=== PATIENT | female | born 1960 | race African-American/Black ===

== ENCOUNTER 2017-06-20 07:05 | Outpatient (CLI) | payer BC ==
--- NOTE | 2017-06-20 09:25 | ULT ---
RENAL ULTRASOUND: Comparison: 01-01-17; CT abdomen/pelvis 05-01-17 History: Kidney stones. Technique: Multiplanar grayscale and color doppler images were obtained in a renal ultrasound. FINDINGS: There appear to be nonobstructing shadowing calcifications within the right kidney. No stones are se en in the left kidney. There is no evidence of hydronephrosis. The kidneys measure 11.0 and 11.2 cm in length on the right and left respectively. Superior to the right kidney there appears to be a mass within the right adrenal gland. This corresp onds to the adrenal adenoma seen on prior CT. The urinary bladder is empty. IMPRESSION: 1. Right nonobstructing renal calcifications. 2. Right adrenal adenoma. POS: [facility]
== END 2017-06-20 07:06 | disposition home or self-care (01) ==
LOC: ULT 07:05
PROVIDERS: ATTEND Urology
DX: N20.0 Calculus of kidney (principal); D35.01 Benign neoplasm of right adrenal gland
CPT/HCPCS: 76770

== ENCOUNTER 2017-10-23 09:06 | Outpatient (CLI) | payer OTHER | END 2017-10-23 09:07 | disposition home or self-care (01) | LOC: BICMAMMO 09:06 | PROVIDERS: ATTEND Internal Medicine Hematology & Oncology | DX: C50.919 Malignant neoplasm of unspecified site of unspecified female breast (principal); Z80.3 Family history of malignant neoplasm of breast; Z85.3 Personal history of malignant neoplasm of breast | CPT/HCPCS: 77066; G0279 ==

== ENCOUNTER 2017-12-14 09:51 | Day surgery (SDC) | payer OTHER ==
[2017-12-13 11:08] VITALS: BMI 51.3
[2017-12-14] MEDS ORDERED: CEFAZOLIN/Water 2 GM/20 ML SYRINGE ONE (10:33)
[2017-12-14] MEDS ORDERED: Heparin 5,000 UNITS/ML VIAL ONE (10:33)
[2017-12-14 11:11] LABS: Anion Gap 12 mmol/L (10-20); BUN (Urea Nitrogen) 12 mg/dL (9.8-20.1); Calc. Creatinine Clearance 167 mL/min (70-130); Calcium 9.9 mg/dL (7.8-10.44); Carbon Dioxide 30 mmol/L (22-29); Chloride 100 mmol/L (98-107); Estimated GFR-MDRD Greater than 90; Glucose 143 mg/dL (70-105); Potassium 3.2 mmol/L (3.5-5.1); Sodium 139 mmol/L (136-145)
[2017-12-14] MEDS ORDERED: Fentanyl 250 MCG/5 ML VIAL ONE (11:21)
[2017-12-14] MEDS ORDERED: Bupivacaine/Epinephrine 0.25% 30 ML VIAL ONE (11:23)
[2017-12-14] MEDS ORDERED: Gentamicin 80 MG/2 ML VIAL ONE (11:23)
[2017-12-14] MEDS ORDERED: Sodium Chloride 0.9% 20 ML ONE (11:24)
[2017-12-14] MEDS ORDERED: Midazolam HCl 2 mg/2 ml Vial ONE (12:05)
[2017-12-14] MEDS ORDERED: Ondansetron HCl/PF 4 MG/2 ML Vial ONE (12:11)
[2017-12-14] MEDS ORDERED: Fentanyl 100 MCG/2 ML VIAL ONE (15:06)
--- NOTE | 2017-12-14 16:19 | OP ---
PREOPERATIVE DIAGNOSES: 1. History of right breast cancer. 2. Status post right lumpectomy with radiation. 3. Asymmetry of breast. 4. Left macromastia. POSTOPERATIVE DIAGNOSES: 1. History of right breast cancer. 2. Status post right lumpectomy with radiation. 3. Asymmetry of breast. 4. Left macromastia. PROCEDURES PERFORMED: Left breast reduction for asymmetry following breast cancer (.LT). PROCEDURE IN DETAIL: Following induction of adequate anesthesia, the patient was prepped and draped in the usual sterile fashion in the supine position. The patient has been preoperatively marked for a modified Vieira pattern breast reduction. The skin over the modified Vieira pattern was de-epitheliali zed. Glandular units were then resected out medially and laterally to achieve the approximate symmet ry of the other breast. Care was taken to leave a very large central pedicle. No flap undermining w as required. The field was copiously irrigated and inspected for meticulous hemostasis prior to clos ing down the excision defects or quilting the excision defects with 2-0 PDS suture. Skin closure was achieved with 3-0 PDS suture and 3-0 Monocryl suture. The nipple which had been previously circumci sed around a 50 mm, nipple sizer was brought out through a similar size defect and inset with 3-0 Mon ocryl suture. The patient tolerated procedure well.
[2017-12-14] MEDS ORDERED: HYDROcodone/Acetaminophen 5/325 mg Tablet ONE (16:30)
== END 2017-12-14 17:50 | disposition home or self-care (01) ==
LOC: SDC 09:51
PROVIDERS: ATTEND Plastic Surgery
PROC: 0H0U0ZZ Alteration of Left Breast, Open Approach (ICD-10-PCS; principal; 2017-12-14)
DX: N62 Hypertrophy of breast (principal); E66.9 Obesity, unspecified; Z68.43 Body mass index [BMI] 50.0-59.9, adult; Z98.890 Other specified postprocedural states; Z85.3 Personal history of malignant neoplasm of breast
CPT/HCPCS: 80048; 93005; 93010; 96374; A4216; J1580; J1644; J2250; J2405; J3010; J3370; J3490

== ENCOUNTER 2017-12-16 15:19 | Emergency (ER) | payer OTHER | END 2017-12-16 17:09 | disposition home or self-care (01) | LOC: ERS 15:19 | DX: I10 Essential (primary) hypertension; Z79.899 Other long term (current) drug therapy; E03.9 Hypothyroidism, unspecified; F41.9 Anxiety disorder, unspecified; R04.0 Epistaxis | CPT/HCPCS: 99283 ==

== ENCOUNTER 2018-03-25 11:18 | Outpatient (CLI) | payer OTHER ==
[2018-03-25] MEDS ORDERED: ISOVUE-370 76%-LOCM 1 ML ONE (12:55)
== END 2018-03-25 11:19 | disposition home or self-care (01) ==
LOC: BICCT 11:18
PROVIDERS: ATTEND Family Medicine
DX: E31.21 Multiple endocrine neoplasia [MEN] type I (principal); R10.10 Upper abdominal pain, unspecified; E27.9 Disorder of adrenal gland, unspecified; N20.0 Calculus of kidney; K45.8 Other specified abdominal hernia without obstruction or gangrene; K44.9 Diaphragmatic hernia without obstruction or gangrene
CPT/HCPCS: 74177

== ENCOUNTER 2018-04-09 16:16 | Outpatient (CLI) | payer OTHER ==
[2018-04-09 17:02] LABS: #Eosinphils 0.3 thou/uL (0.0-0.7); #Lymphocytes 2.3 thou/uL (1.20-3.40); #Monocytes 0.7 thou/uL (0.11-0.59); %Basophils 0.3 % (0.0-1.0); %Eosinophils 4.3 % (0.0-10.0); %Lymphocytes 31.4 % (21.0-51.0); %Monocytes 9.2 % (0.0-10.0); %Neutrophils 54.7 % (42.0-75.0); Hemoglobin 12.1 g/dL (12.0-16.0); Mean Corpuscular HGB CONC 32.1 g/dL (32.0-36.0); Mean Corpuscular Hemoglobin 22.1 pg (27.0-31.0); Mean Corpuscular Volume 68.9 fL (78.0-98.0); Mean Platelet Volume 10.6 fL (7.4-10.4); Platelet Count 292 thou/uL (130-400); Red Blood Cell (RBC) Count 5.48 mill/uL (4.20-5.40); White Blood Cell (WBC) Count 7.2 thou/uL (4.8-10.8)
[2018-04-09 17:22] LABS: Anisocytosis SLIGHT = 6-15 cells (100X) (0-5/hpf); Hypochromia SLIGHT = 6-15 cells (100X) (0-5/hpf); Large Platelets SLIGHT; MDiff Complete? YES; Microcytosis SLIGHT = 6-15 cells (100X) (0-5/hpf); Ovalocytes SLIGHT = 2-5 cells (100X) (0-1/hpf); PLT Morphology Comment Appears Adequate; Polychromasia SLIGHT = 2-3 cells (100X) (0-2/hpf)
[2018-04-09 17:23] LABS: Anion Gap 14 mmol/L (10-20); BUN (Urea Nitrogen) 13 mg/dL (9.8-20.1); Calc. Creatinine Clearance 0 mL/min (70-130); Calcium 10.2 mg/dL (7.8-10.44); Carbon Dioxide 30 mmol/L (22-29); Chloride 97 mmol/L (98-107); Estimated GFR-MDRD Greater than 90; Glucose 94 mg/dL (70-105); Potassium 3.3 mmol/L (3.5-5.1); Sodium 138 mmol/L (136-145)
== END 2018-04-09 16:17 | disposition home or self-care (01) ==
LOC: LABBT 16:16
PROVIDERS: ATTEND Surgery
DX: Z01.812 Encounter for preprocedural laboratory examination (principal); K40.90 Unilateral inguinal hernia, without obstruction or gangrene, not specified as recurrent
CPT/HCPCS: 80048; 85025

== ENCOUNTER 2018-04-18 05:46 | Day surgery (SDC) | payer OTHER ==
[2018-04-09 16:28] VITALS: BMI 49.6
[2018-04-18] MEDS ORDERED: CEFAZOLIN/Water 2 GM/20 ML SYRINGE ONE (06:30)
[2018-04-18] MEDS ORDERED: Bupivacaine/Epinephrine 0.25% 30 ML VIAL ONE (06:40)
[2018-04-18] MEDS ORDERED: Fentanyl 100 MCG/2 ML VIAL ONE ×5 (06:40→10:30)
[2018-04-18] MEDS ORDERED: Scopolamine 1.5 mg/72 hour Patch ONE (07:04)
[2018-04-18] MEDS ORDERED: Midazolam HCl 2 mg/2 ml Vial ONE (07:04)
[2018-04-18] MEDS ORDERED: SUGAMMADEX SODIUM 200 MG/2 ML VIAL ONE (09:10)
--- NOTE | 2018-04-18 10:23 | OP ---
DATE OF PROCEDURE: 04/18/2018. PREOPERATIVE DIAGNOSIS: Incisional hernia. POSTOPERATIVE DIAGNOSIS: Incisional hernia. PROCEDURE: Laparoscopic da Cande robot incisional hernia repair with mesh. SURGEON: John Magallon M.D. ANESTHESIA: General. ESTIMATED BLOOD LOSS: 20 mL. COMPLICATIONS: None. SPECIMEN: None. TECHNIQUE: The patient was taken to the operating room, placed supine on the table. After general a nesthetic was obtained, a Sharpe was placed. The abdomen is prepped and draped in a sterile fashion. Left subcostal 5-mm Optiview trocar was placed in the usual fashion. High-flow pneumoperitoneum was obtained. Right and left upper abdominal 8 mm robot trocars were placed. All ports were docked to the robot. Surgeon goes to the console. Adhesions are taken down using robot scissors very carefull y without injury. The hernia above the umbilicus is expose. The peritoneum is taken down circumfere ntially. Adhesions are taken down in order to facilitate mesh placement. A #1 V-Loc as well as a 2- 0 V-Loc and an [address] mesh was brought into the sterile field and placed in through the camera port. The camera port had been switched out to an 11 mm balloon applied medical trocar. The fascial defects closed using the #1 V-Loss of consciousness. The needle for the suture is then u sed to hold the mesh up and center it over the defect. It has now been closed. The 2-0 V-Loc used t o sew the mesh circumferentially to the posterior fascia all the way around and then it is overlapped . The mesh completely covers the defect. All port sites were infiltrated using local anesthetic. A ll ports are removed under camera visualization and pneumoperitoneum was let down. 4-0 Monocryl and Dermabond used to close all skin incisions. Patient is en route to recovery in stable condition. Al l sponge counts, needle counts, lap counts were correct.
[2018-04-18] MEDS ORDERED: HYDROcodone/Acetaminophen 5/325 mg Tablet ONE (12:48)
[2018-04-18] MEDS ORDERED: Lidocaine 1% PF 5 ML VIAL ONE (14:50)
[2018-04-18] MEDS ORDERED: Glycopyrrolate 0.2 MG/ML 5 ML SYRINGE ONE (14:50)
[2018-04-18] MEDS ORDERED: PROPOFOL 200 MG/20 ML VIAL ONE (14:50)
[2018-04-18] MEDS ORDERED: Ondansetron HCl/PF 4 MG/2 ML Vial ONE (14:50)
== END 2018-04-18 13:05 | disposition home or self-care (01) ==
LOC: SDC 05:46
PROVIDERS: ATTEND Surgery
PROC: 0WUF4JZ Supplement Abdominal Wall with Synthetic Substitute, Percutaneous Endoscopic Approach (ICD-10-PCS; principal; 2018-04-18)
PROC: 8E0W4CZ Robotic Assisted Procedure of Trunk Region, Percutaneous Endoscopic Approach (ICD-10-PCS; principal; 2018-04-18)
DX: K43.2 Incisional hernia without obstruction or gangrene (principal); F32.9 Major depressive disorder, single episode, unspecified; D64.9 Anemia, unspecified; K21.9 Gastro-esophageal reflux disease without esophagitis; Z79.899 Other long term (current) drug therapy; Z98.890 Other specified postprocedural states
CPT/HCPCS: 96374; 96376; C1781; J2001; J2250; J2405; J2704; J3010

== ENCOUNTER 2018-05-25 20:53 | Emergency (ER) | payer OTHER ==
--- NOTE | 2018-05-25 22:28 | ULT ---
RIGHT LOWER EXTREMITY VENOUS DOPPLER: 05/25/18 HISTORY: Lower extremity pain and swelling. COMPARISON: Lower extremity doppler from 2013. TECHNIQUE: Real time fernández scale color doppler and spectral analysis of the right lower extremity venous system w as performed. Common femoral, femoral, proximal portions of the greater saphenous and deep femoral ve in as well as popliteal and posterior tibial veins are interrogated. Normal flow, augmentation and compression. No deep venous thrombosis. There is superficial thrombophl ebitis with soft tissue inflammation at the area of pain. IMPRESSION: 1. No deep venous thrombosis. 2. Superficial thrombophlebitis. POS: [facility]
== END 2018-05-25 22:52 | disposition home or self-care (01) ==
LOC: ERS 20:53
DX: I80.01 Phlebitis and thrombophlebitis of superficial vessels of right lower extremity (principal); F41.9 Anxiety disorder, unspecified; I10 Essential (primary) hypertension; Z79.899 Other long term (current) drug therapy

== ENCOUNTER 2018-10-24 13:18 | Outpatient (CLI) | payer OTHER | END 2018-10-24 13:19 | disposition home or self-care (01) | LOC: BICMAMMO 13:18 | PROVIDERS: ATTEND Internal Medicine Hematology & Oncology | DX: Z08 Encounter for follow-up examination after completed treatment for malignant neoplasm (principal); R92.1 Mammographic calcification found on diagnostic imaging of breast; Z85.3 Personal history of malignant neoplasm of breast; Z80.3 Family history of malignant neoplasm of breast | CPT/HCPCS: 77066; G0279 ==

== ENCOUNTER 2019-05-21 05:23 | Emergency (ER) | payer OTHER ==
[2019-05-21] MEDS ORDERED: Aspirin Chewable 81 MG TAB ONE (05:43)
[2019-05-21 06:33] LABS: #Eosinphils 0.2 thou/uL (0.0-0.7); #Lymphocytes 2.3 thou/uL (1.20-3.40); #Monocytes 0.8 thou/uL (0.11-0.59); #Neutrophils 5.1 thou/uL (1.40-6.50); %Basophils 0.4 % (0.0-1.0); %Eosinophils 2.9 % (0.0-10.0); %Lymphocytes 27.4 % (21.0-51.0); %Monocytes 9.1 % (0.0-10.0); %Neutrophils 60.2 % (42.0-75.0); Hemoglobin 11.8 g/dL (12.0-16.0); Mean Corpuscular HGB CONC 30.9 g/dL (32.0-36.0); Mean Corpuscular Hemoglobin 21.3 pg (27.0-31.0); Mean Platelet Volume 10.5 fL (7.4-10.4); Platelet Count 301 thou/uL (130-400); RBC Distribution Width 16.3 % (11.5-14.5); Red Blood Cell (RBC) Count 5.51 mill/uL (4.20-5.40); White Blood Cell (WBC) Count 8.4 thou/uL (4.8-10.8)
[2019-05-21 06:47] LABS: ALT (SGPT) 12 U/L (8-55); AST (SGOT) 13 U/L (5-34); Albumin 3.6 g/dL (3.5-5.0); Alkaline Phosphatase 135 U/L (40-150); Anion Gap 12 mmol/L (10-20); BUN (Urea Nitrogen) 12 mg/dL (9.8-20.1); Bilirubin, Total 0.3 mg/dL (0.2-1.2); Calc. Creatinine Clearance 0 mL/min (70-130); Calcium 9.7 mg/dL (7.8-10.44); Carbon Dioxide 27 mmol/L (22-29); Chloride 103 mmol/L (98-107); Estimated GFR-MDRD 89; Globulin 3.5 g/dL (2.4-3.5); Glucose 164 mg/dL (70-105); Potassium 3.5 mmol/L (3.5-5.1); Protein, Total 7.1 g/dL (6.0-8.3); Sodium 138 mmol/L (136-145)
[2019-05-21] MEDS ORDERED: Mag-Al 1200 mg/1200 mg/30 ML UDCUP ONE (07:10)
[2019-05-21] MEDS ORDERED: Lidocaine Viscous Sol 2% 15 ml UD Cup ONE (07:10)
--- NOTE | 2019-05-21 09:01 | RAD ---
CHEST 1 VIEW PORTABLE: Date: 05/21/19 HISTORY: Chest pain for 1 week, primarily left-sided chest. COMPARISON: 12/02/15. FINDINGS: Monitor leads overlie the chest. Minimal rotation to the left. No significant cardiomegaly, edema, pn eumonia, or pleural effusion. IMPRESSION: Minimal rotation. Possible mild vascular congestion. No other acute process. POS: [facility]
--- NOTE | 2019-05-24 12:31 | EKG ---
Test Reason : Blood Pressure : / mmHG Vent. Rate : 078 BPM Atrial Rate : 078 BPM P-R Int : 162 ms QRS Dur : 090 ms QT Int : 386 ms P-R-T Axes : 035 -17 012 degrees QTc Int : 440 ms Normal sinus rhythm with sinus arrhythmia Voltage criteria for left ventricular hypertrophy Abnormal ECG Confirmed by ANGELITO CAMPBELL M.D. ([id number]), society editor YANCY MAYS ([id number]) on 05/24/2019 12:31:31 PM Referred By: Confirmed By:ANGELITO CAMPBELL M.D.
== END 2019-05-21 09:15 | disposition home or self-care (01) ==
LOC: ERS 05:23
DX: R07.2 Precordial pain (principal); E03.9 Hypothyroidism, unspecified; I10 Essential (primary) hypertension; F41.9 Anxiety disorder, unspecified; Z79.899 Other long term (current) drug therapy
CPT/HCPCS: 36415; 71045; 80053; 84484; 85025; 93005

== ENCOUNTER 2019-06-27 08:27 | Emergency (ER) | payer OTHER ==
[2019-06-27 09:34] LABS: #Basophils 0.1 thou/uL (0.0-0.2); #Eosinphils 0.2 thou/uL (0.0-0.7); #Lymphocytes 2.3 thou/uL (1.20-3.40); #Monocytes 0.6 thou/uL (0.11-0.59); #Neutrophils 4.4 thou/uL (1.40-6.50); %Basophils 0.7 % (0.0-1.0); %Eosinophils 2.4 % (0.0-10.0); %Lymphocytes 30.4 % (21.0-51.0); %Neutrophils 58.5 % (42.0-75.0); Hemoglobin 12.5 g/dL (12.0-16.0); Mean Corpuscular HGB CONC 30.9 g/dL (32.0-36.0); Mean Corpuscular Hemoglobin 21.6 pg (27.0-31.0); Mean Corpuscular Volume 69.9 fL (78.0-98.0); Platelet Count 279 thou/uL (130-400); RBC Distribution Width 16.1 % (11.5-14.5); Red Blood Cell (RBC) Count 5.77 mill/uL (4.20-5.40); White Blood Cell (WBC) Count 7.5 thou/uL (4.8-10.8)
[2019-06-27 09:52] LABS: ALT (SGPT) 15 U/L (8-55); AST (SGOT) 14 U/L (5-34); Albumin 3.8 g/dL (3.5-5.0); Alkaline Phosphatase 117 U/L (40-110); Anion Gap 12 mmol/L (10-20); BUN (Urea Nitrogen) 13 mg/dL (9.8-20.1); Bilirubin, Total 0.6 mg/dL (0.2-1.2); Calc. Creatinine Clearance 0 mL/min (70-130); Carbon Dioxide 31 mmol/L (22-29); Chloride 99 mmol/L (98-107); Estimated GFR-MDRD 86; Globulin 3.8 g/dL (2.4-3.5); Glucose 159 mg/dL (70-105); Lipase 234 U/L (8-78); Potassium 3.7 mmol/L (3.5-5.1); Protein, Total 7.6 g/dL (6.0-8.3); Sodium 138 mmol/L (136-145)
[2019-06-27 09:53] LABS: Hypochromia MODERATE=16-30 cells (100X) (0-5/hpf); MDiff Complete? YES; Microcytosis MODERATE=15-30 cells (100X) (0-5/hpf); Platelet Morphology Comment Appears Adequate; Polychromasia SLIGHT = 2-3 cells (100X) (0-2/hpf); Reflex for Review?? YES
[2019-06-27] MEDS ORDERED: Morphine 4 MG/ML VIAL ONE ×2 (09:54→11:41)
[2019-06-27] MEDS ORDERED: Ondansetron PF 4 MG/2 ML Vial ONE (09:54)
--- NOTE | 2019-06-27 11:38 | CT ---
CT ABDOMEN AND PELVIS WITH IV CONTRAST: Date: 06/27/19 HISTORY: Epigastric pain radiating to the back. Right breast cancer. FINDINGS: Comparison made with exam of 03/25/18. Chronic changes in the lung bases are again seen. A large hiatal hernia is again noted. The patient i s post cholecystectomy and hysterectomy. The liver, spleen, and pancreas are normal. Bilateral adrena l adenomas noted on 05/01/17 are stable. No free air, free fluid, or lymphadenopathy seen in the abdomen or pelvis. The small bowel loops are not abnormally dilated. Fat-containing ventral abdominal hernia again seen with continued induration of the herniated fat which was also seen on the previous study. There are vascular calcifications without evidence of aneurysmal dilatation of the abdominal aorta. T here are degenerative changes in the spine. IMPRESSION: Stable exam. No acute process. POS: [facility]
[2019-06-27] MEDS ORDERED: Ketorolac Tromethamine 30 MG/ML VIAL ONE (11:41)
[2019-06-27] MEDS ORDERED: Acetaminophen 500 MG TAB ONE (11:41)
--- NOTE | 2019-06-28 14:07 | EKG ---
Test Reason : EPIGASTRIC PAIN Blood Pressure : / mmHG Vent. Rate : 067 BPM Atrial Rate : 067 BPM P-R Int : 160 ms QRS Dur : 096 ms QT Int : 398 ms P-R-T Axes : 102 -16 020 degrees QTc Int : 420 ms Sinus rhythm with Premature atrial complexes with Abberant conduction Moderate voltage criteria for LVH, may be normal variant Borderline ECG Confirmed by RADHA NGUYEN ([id number]), editorial specialist YANCY MAYS ([id number]) on 06/28/2019 2:06:52 PM Referred By: WENDY Confirmed By:RADHA NGUYEN
== END 2019-06-27 12:56 | disposition home or self-care (01) ==
LOC: ERS 08:27
DX: K44.9 Diaphragmatic hernia without obstruction or gangrene (principal); E03.9 Hypothyroidism, unspecified; I10 Essential (primary) hypertension; F41.9 Anxiety disorder, unspecified; Z79.899 Other long term (current) drug therapy; Z87.442 Personal history of urinary calculi
CPT/HCPCS: 36415; 74177; 80053; 83690; 84484; 85025; 85060; 93005; 96361; 96374; 96375; 96376; J1885; J2270; J2405

== ENCOUNTER 2019-07-16 05:53 | Day surgery (SDC) | payer OTHER ==
[2019-07-16] MEDS ORDERED: Lidocaine 1% PF 5 ML VIAL ONE (10:21)
[2019-07-16] MEDS ORDERED: PROPOFOL 200 MG/20 ML VIAL ONE (10:21)
[2019-07-16] MEDS ORDERED: Morphine 2 MG/ML SYRINGE ONE (10:59)
--- NOTE | 2019-07-16 11:04 | OP ---
DATE OF PROCEDURE: 07/16/2019 PROCEDURE PERFORMED: Esophagogastroduodenoscopy. PREMEDICATION: Given by Anesthesiology Department. PREPROCEDURE DIAGNOSES: 1. Epigastric pain/xiphoid pain. 2. Gastroesophageal reflux disease. POSTPROCEDURE DIAGNOSES: 1. 6-cm length hiatal hernia. 2. Otherwise normal upper endoscopy. DESCRIPTION OF PROCEDURE: Written consents were obtained prior to procedure. After adequate sedation, the forward-viewing endoscope was advanced down the stomach under direct vision to the second portion of duodenum. The duodenum and the bulb appeared normal. The pylorus was patent. The gastric antrum, body, fundus, and cardia all appeared normal. Retroflexion showed a medium-sized hiatal hernia. The hiatal hernia ways were located at 40 cm. The GE junction and Z-line were located at 34 cm from the incisors. The lower, mid, and upper esophagus appeared normal. The patient tolerated the procedure well. ASSESSMENT: 1. 6-cm length hiatal hernia. 2. Otherwise normal esophagus/stomach/duodenum. 3. Suspected chest wall source of pain given negative CT otherwise. RECOMMENDATIONS: Soft tissue ultrasound over the xiphoid area. Job ID: [id number]
== END 2019-07-16 11:58 | disposition home or self-care (01) ==
LOC: SDC 05:53
PROVIDERS: ATTEND Internal Medicine Gastroenterology
PROC: 0DJ08ZZ Inspection of Upper Intestinal Tract, Via Natural or Artificial Opening Endoscopic (ICD-10-PCS; principal; 2019-07-16)
DX: R07.89 Other chest pain (principal); K44.9 Diaphragmatic hernia without obstruction or gangrene; K21.9 Gastro-esophageal reflux disease without esophagitis; F41.9 Anxiety disorder, unspecified; Z79.899 Other long term (current) drug therapy
CPT/HCPCS: J2001; J2270; J2704

== ENCOUNTER 2019-07-17 08:18 | Outpatient (CLI) | payer OTHER ==
--- NOTE | 2019-07-17 09:55 | ULT ---
SOFT TISSUE ULTRASOUND: HISTORY: Sternal subcutaneous knot. TECHNIQUE: Targeted sonographic imaging of the region of concern was performed. FINDINGS: There is soft tissue echotexture. There does appear to be a lobular area of normal-appearing soft tis juan miguel echotexture measuring 2.6 x 1.4 x 2.1 cm. There does not appear to be a corresponding mass on recent CT. There is some stranding the ventral subcutaneous fat, however this is inferior to the umbi licus. IMPRESSION: Essentially normal soft tissue echotexture in the region of concern. A more focal lobulated area of s imilar echotexture is noted. Consider general surgical consultation for possible evaluation and/or biopsy. Transcribed Date/Time: 07/17/2019 10:04 AM
--- NOTE | 2019-07-17 16:01 | MRI ---
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 "Comments: Carcinoid tumors. Meningioma." COMPARISON: Standard brain MRI of 02/02/2017. FINDINGS: There is a small, approximately 0.4 x 0.3 cm extra-axial mass exophytically protruding superiorly fro m the superior edge of the right cavernous carotid/supraclinoid carotid junction, into the lateral edge of the suprasellar cistern, in close proximity to the undersurface of the right side of the opti c chiasm but not contacting it. It has intermediate signal intensity on precontrast images, and it enhances (thin slice dynamic coronal images 8 of 10, series 13; and 8 of 10, series 14). Precontrast later washes out and it becomes difficult to visualize. It is uncertain whether or not it was present on previous MRI of 2017. Again noted are the 2 focal prominent ossified dural plaques. One is at midline at the interhemispher ic falx, and the other is at the right frontal upper paramedian epidural space. These have fatty marrow signal, and are not meningiomas. Again noted is the evidence of left frontotemporal craniotomy, deep to which there is a small to mode rate-sized left lateral upper frontal focal extra-axial fluid collection measuring approximately 1.5 x 1.5 x 2 cm, which could be a porencephalic cyst, deep to which there is a small patchy region o f gliosis and encephalomalacia, representing site of previously resected meningioma. There is no other major intra-axial signal abnormality. Ventricles are normal in size and configurati on. No mass effect or midline shift. No recent intra-axial hemorrhage. No restricted diffusion. There is no pituitary macroadenoma. The thin slices through the sella turcica are degraded by patient motion such that it is difficult to evaluate for pituitary microadenoma. There is a small subcentimeter focus hypointense signal on T2-weighted images and T1-weighted images in the right side of sella turcica on precontrast sequences, there are questionable for pituitary microadenoma. No evidence of new intra-axial neoplasm. IMPRESSION: 1.) Tiny enhancing extra-axial nodule just superior to the right carotid siphon, questionable for tin y neoplasm such as tiny meningioma. 2.) Questionable small right-sided pituitary microadenoma versus artifact (the sella turcica images a re degraded by patient motion). 3) status post left pterional craniotomy for resection of prior left supratentorial meningioma. No ev idence of tumor recurrence in that location.
--- NOTE | 2019-07-17 20:26 | MRI ---
EXAM: MRI of the chest without and with contrast COMPARISON: CT abdomen/pelvis 06/27/2019 HISTORY: Multiple endocrine neoplasia type I TECHNIQUE: Multiplanar multi sequence MR images were taken of the chest without and with IV contrast. FINDINGS: No obvious mass is seen within the lung parenchyma but evaluation is limited with MRI. No mass is see n of the chest wall. The heart is normal in size. There is a large hiatal hernia. No enlarged hilar or mediastinal lymph n odes are appreciated on this limited exam. No marrow signal abnormality is present. No obvious abnormal signal is seen in the visualized cord. No mass is seen posterior to the thyroid gland. There is a 3.5 similar right adrenal mass. There may be mild hyperplasia of the left adrenal gland. IMPRESSION: 1. No significant intrathoracic abnormality. Evaluation is limited secondary to respiratory motion ar tifact on MRI. 2. No obvious mass behind the thyroid gland. Evaluation for parathyroid adenomas would be better perf ormed with either a CT or nuclear medicine study. 3. Stable adrenal masses. 4. Large hiatal hernia
== END 2019-07-17 08:19 | disposition home or self-care (01) ==
LOC: SCSULT 08:18
PROVIDERS: ATTEND Internal Medicine Gastroenterology
DX: E31.21 Multiple endocrine neoplasia [MEN] type I (principal); D49.7 Neoplasm of unspecified behavior of endocrine glands and other parts of nervous system; R10.13 Epigastric pain; R11.2 Nausea with vomiting, unspecified; K21.9 Gastro-esophageal reflux disease without esophagitis; E27.8 Other specified disorders of adrenal gland; K44.9 Diaphragmatic hernia without obstruction or gangrene; G93.89 Other specified disorders of brain; Z98.890 Other specified postprocedural states
CPT/HCPCS: 70553; 71552; 76705

== ENCOUNTER 2019-08-04 02:07 | Observation (INO) | payer OTHER ==
[2019-08-04 03:28] LABS: #Eosinphils 0.3 thou/uL (0.0-0.7); #Lymphocytes 1.5 thou/uL (1.20-3.40); #Monocytes 0.7 thou/uL (0.11-0.59); #Neutrophils 4.4 thou/uL (1.40-6.50); %Basophils 0.3 % (0.0-1.0); %Eosinophils 3.6 % (0.0-10.0); %Lymphocytes 22.1 % (21.0-51.0); %Monocytes 9.9 % (0.0-10.0); %Neutrophils 64.1 % (42.0-75.0); Hemoglobin 11.8 g/dL (12.0-16.0); Mean Corpuscular HGB CONC 30.7 g/dL (32.0-36.0); Mean Corpuscular Hemoglobin 21.4 pg (27.0-31.0); Mean Corpuscular Volume 69.8 fL (78.0-98.0); Mean Platelet Volume 10.5 fL (7.4-10.4); Platelet Count 276 thou/uL (130-400); RBC Distribution Width 15.4 % (11.5-14.5); White Blood Cell (WBC) Count 6.9 thou/uL (4.8-10.8)
[2019-08-04 03:55] LABS: ALT (SGPT) 18 U/L (8-55); AST (SGOT) 21 U/L (5-34); Albumin 3.7 g/dL (3.5-5.0); Alkaline Phosphatase 139 U/L (40-110); Anion Gap 9 mmol/L (10-20); BUN (Urea Nitrogen) 14 mg/dL (9.8-20.1); Bilirubin, Total 0.5 mg/dL (0.2-1.2); CK (CPK) 83 U/L (29-168); Calc. Creatinine Clearance 0 mL/min (70-130); Calcium 9.5 mg/dL (7.8-10.44); Carbon Dioxide 31 mmol/L (22-29); Chloride 103 mmol/L (98-107); Estimated GFR-MDRD Greater than 90; Globulin 3.5 g/dL (2.4-3.5); Glucose 126 mg/dL (70-105); Lipase 21 U/L (8-78); Potassium 3.3 mmol/L (3.5-5.1); Protein, Total 7.2 g/dL (6.0-8.3); Sodium 140 mmol/L (136-145)
[2019-08-04] MEDS ORDERED: Ondansetron PF 4 MG/2 ML Vial ONE (05:51)
[2019-08-04] MEDS ORDERED: Morphine 4 MG/ML VIAL ONE (05:51)
[2019-08-04 06:33] LABS: Bilirubin Negative (Negative); Blood, Urine Negative (Negative); Clarity Clear (Clear); Glucose, Urine (Dipstick) Normal (Negative); Leukocyte Negative Leu/uL (Negative); Nitrite Negative (Negative); Protein, Urine (Dipstick) Negative (Neg-Trace)
[2019-08-04] MEDS ORDERED: Aspirin Chewable 81 MG TAB ONE (07:40)
--- NOTE | 2019-08-04 08:05 | CT ---
CT AORTIC DISSECTION PROTOCOL UTILIZING IV CONTRAST AND 3D REFORMATTED IMAGING: Date: 08/04/19 INDICATION: 59-year-old female with epigastric abdominal pain, nausea and vomiting. COMPARISON: CT abdomen and pelvis dated 06/27/[address] abdomen/pelvis dated 05/01/17. FINDINGS: No acute aortic stenosis, occlusion, or aneurysmal formation is demonstrated. There is mild vascular calcification of the abdominal aorta. Celiac, SMA, and renal arteries appear patent. Both common gwen c bifurcations appear patent. There are nonspecific areas of subsegmental volume loss involving both lungs. There is again seen a moderate to large hiatal hernia. No enlarged lymph nodes are evident ynes earing. There is stable postsurgical change of a prior cholecystectomy. Reticulation of the upper anterior mi dline omentum is relatively stable from June and likely related to an area of fat necrosis from vincenzo sanchez's history of abdominal procedures. Bilateral adrenal adenomas are stable appearing. There is st able left nephrolithiasis and areas of cortical calcification involving the right and left kidney. Vi sualized spleen and pancreas are within normal limits. The visualized unopacified bowel appear within normal limits. No acute osseous abnormality is evident. IMPRESSION: 1. No acute aortic stenosis, occlusion, or aneurysmal formation. 2. Chronic findings as above. POS: [facility]
[2019-08-04 09:00] LABS: Troponin I 0.018 ng/mL (< 0.028)
[2019-08-04] MEDS ORDERED: Morphine 2 MG/ML SYRINGE SLOW IVP PRN (09:16)
--- NOTE | 2019-08-04 09:16 | RAD ---
RADIOGRAPH CHEST 1 VIEW: DATE: 08/04/19 HISTORY: 59-year-old female with chest pain. FINDINGS: There are no air space densities, pulmonary edema, pneumothorax, or cardiomegaly. The lateral costop hrenic angles are sharp. There is a retrocardiac mass containing air fluid level at midline. IMPRESSION: 1. No acute cardiopulmonary findings. 2. Moderate size hiatal hernia. jn [] POS: [facility]
[2019-08-04 10:03] VITALS: BMI 50.0
[2019-08-04] MEDS ORDERED: Nitroglycerin 0.4 MG TAB (25 Tab Bottle) PO PRN (10:51)
[2019-08-04] MEDS ORDERED: Iopamidol-370 76% 500 ML 1 ML ONE (11:18)
[2019-08-04 11:38] LABS: Troponin I Less than 0.010 ng/mL (< 0.028)
[2019-08-04] MEDS ORDERED: Lorazepam 2 MG/ML VIAL SLOW IVP SCH (12:00)
[2019-08-04] MEDS ORDERED: FLU VACC QS2019-20(6MOS UP)/PF 60 MCG/0.5 ML SYRINGE IM ONE (12:30)
[2019-08-04] MEDS ORDERED: Ondansetron PF 4 MG/2 ML Vial IVP PRN (12:43)
[2019-08-04] MEDS ORDERED: Senokot S 8.6-50 MG TAB PO PRN (12:43)
[2019-08-04] MEDS ORDERED: Ondansetron ODT 4 MG TAB PO PRN (12:43)
[2019-08-04] MEDS ORDERED: Acetaminophen 325 MG TAB PO PRN (12:43)
[2019-08-04] MEDS ORDERED: Calcium Carbonate 500 MG ChewTAB PO PRN (12:43)
[2019-08-04] MEDS ORDERED: Potassium Chloride 20 MEQ TAB PO SCH ×2 (12:45→17:00)
[2019-08-04] MEDS ORDERED: traMADol HCl 50 MG TAB PO PRN (12:57)
[2019-08-04] MEDS ORDERED: Magnesium 2 GM/50 ML 2 GM in Premix Bag 1 BAG IVPB SCH (13:00)
--- NOTE | 2019-08-04 13:12 | HP ---
PRIMARY CARE PHYSICIAN: Dr. Segura. CHIEF COMPLAINT: Chest discomfort. HISTORY OF PRESENT ILLNESS: The patient is a 59-year-old female with GERD, hiatal hernia, hypertension, and obesity, presented to the emergency room with above complaints. Over the last 3 months or so, the patient has lower chest discomfort that is progressively getting worse. She had nausea, however, denies any vomiting. She denies any diaphoresis, palpitations, or syncope. The chest pain is more or less constant, aggravated with exertion and movement. At times, the pain is reproducible. She is unable to describe the pain further. She denies any radiation. No recent immobilization travel reported. She denies any lower extremity edema or tenderness. Her EKG in the emergency room showed sinus rhythm with left ventricular hypertrophy. Her initial vital signs in the emergency room showed temperature 98.8, respirations of 16, pulse rate of 81, with a blood pressure of 108/91 with O2 saturation of 96% on room air. She received aspirin, morphine, Zofran with IV fluids in the emergency room. She denies previous cardiac workup. She recently had an extensive GI workup to identify the etiology. PAST MEDICAL HISTORY: 1. GERD. 2. Pituitary tumor. 3. Depression without any suicidal ideation. 4. Neurofibromatosis. 5. Hypertension. 6. Left frontal meningioma. 7. History of hyperparathyroidism. 8. Nephrolithiasis. 9. Hypertension. 10. Morbid obesity with a BMI of 50.7. PAST SURGICAL HISTORY: 1. Cardiac catheterization in 2008 that showed normal coronaries. 2. Parathyroidectomy. 3. Surgery for brain tumor in 2004. 4. Right knee arthroscopy. 5. Cholecystectomy. 6. Stereotactic radiosurgery for meningioma. 7. Shock wave lithotripsy in 2004 for renal calculi. 8. Partial hysterectomy in 1983. 9. Appendectomy. 10. Right breast lumpectomy in 2013. 11. Thyroid surgery. 12. Breast reduction in 2018. 13. Biopsy for right adrenal mass. 14. Incisional hernia repair. SOCIAL HISTORY: The patient currently lives at home with her family. She denies any smoking. She has four children. She makes her own decision with the help of her family. ALLERGIES: NO KNOWN DRUG ALLERGIES. FAMILY HISTORY: Mother diagnosed with cancer. Diabetes runs in her family. CURRENT HOME MEDICATION: 1. Vitamin D3 of 2000 units daily. 2. Pepcid 20 mg daily. 3. Indapamide 2.5 mg daily. 4. Multivitamin 1 tablet daily. 5. Zofran as needed. 6. Potassium citrate 20 mEq daily. 7. Tramadol as needed. REVIEW OF SYSTEMS: All other review of systems was reviewed and were found negative. PHYSICAL EXAMINATION: VITAL SIGNS: As discussed above. GENERAL: A 59-year-old female, in no apparent distress. HEENT: Head, atraumatic and normocephalic. Sclerae anicteric. Moist mucous membranes. No oral lesion. NECK: Supple. No JVD appreciated. No carotid bruit. LUNGS: Clear to auscultation bilaterally. No wheezing, rales, or rhonchi. HEART: S1 and S2 present. Regular rate and rhythm. No rubs or gallops. There is questionable reproducible area in the lower sternum. ABDOMEN: Soft, nontender. Bowel sounds present. No rebound or guarding. EXTREMITIES: No edema or calf tenderness. NEUROLOGIC: Grossly nonfocal. Moves all 4 extremities. PSYCHIATRIC: Alert, awake, oriented x3. Normal affect. PERIPHERAL VASCULAR: Radial pulses palpable bilaterally. MUSCULOSKELETAL: No joint swelling or tenderness. LABORATORY FINDINGS: WBC 6.9 with hemoglobin 11.8, platelet count 276. D-dimer was 1.5. Troponins were negative. Magnesium was 1.6, potassium 3.3. BNP was 19.1. Urinalysis was negative for WBC bacteria. CT dissection protocol was negative for dissection or aneurysm. IMAGING STUDIES: Chest x-ray by my review was negative for infiltrate. EKG by my review as discussed above. IMPRESSION: 1. Chest discomfort. 2. Gastroesophageal reflux disease with moderate-size hiatal hernia. 3. Negative cardiac catheterization in 2008. 4. Morbid obesity with a BMI of 50. 5. Hypertension. 6. Hypokalemia/hypomagnesemia. 7. Depression without any suicidal ideation. 8. Chronic anemia, hypochromic microcytic. 9. Impaired glucose tolerance. PLAN: The patient will be monitored on the telemetry unit as 23-hour observation. Exact etiology for chest discomfort is unclear. She had an extensive GI workup including EGD, chest MRI and CT scans. She is in the process of outpatient cardiology referral for above symptoms. We will schedule a stress test. We will also get an echocardiogram to rule out pericarditis/pericardial effusion. Add aspirin for now. We will resume selected home medications. Plan was discussed with the patient in detail. She stated understanding. Job ID: [id number]
--- NOTE | 2019-08-04 14:03 | NM ---
Radionucleotide stress only myocardial perfusion scan with CT attenuation correction and SPECT imagin g HISTORY: Chest pain. FINDINGS: Adenosine protocol. Heterogeneous uptake of radiotracer throughout the left ventricular di cardium. No focal perfusion defect. QGS analysis of gated SPECT images shows no focal wall motion abnormalities. Ejection fraction calcul ated at 57%. IMPRESSION: Normal myocardial stress only perfusion scan. Normal LVEF.
[2019-08-04 15:36] VITALS: BP 94/65; TEMP 98.4
[2019-08-04] MEDS ORDERED: Famotidine 20 MG TAB PO SCH (21:00)
[2019-08-05] MEDS ORDERED: Potassium Citrate 10 MEQ TAB PO SCH (09:00)
[2019-08-05] MEDS ORDERED: Aspirin 81 mg Enteric Coated Tablet PO SCH (09:00)
[2019-08-05] MEDS ORDERED: Aspirin 325 mg Enteric Coated Tablet PO SCH (09:00)
--- NOTE | 2019-08-05 09:08 | DIS ---
DATE OF ADMISSION: 08/04/2019 DATE OF DISCHARGE: 08/04/2019 DISCHARGE DISPOSITION: Home. FOLLOWUP: Follow up with primary care physician, Dr. Segura in 1 week. Please refer to my history and physical for details on her initial presentation. BRIEF HOSPITAL COURSE: The patient was admitted to the hospital with a diagnosis of chest discomfort, rule out acute coronary syndrome. Serial troponins remain negative. She underwent a Cardiolite stress test that was negative for reversible ischemia. Ejection fraction was 57%. She also had an echocardiogram that showed left ventricular ejection fraction of 50% to 55% with normal mitral valve, normal aortic valve. Please note, the patient had a cardiac catheterization in 2008 that showed normal coronaries. Her chest discomfort is probably musculoskeletal. She was started on low-dose Flexeril. FINAL DIAGNOSES: 1. Chest discomfort, acute coronary syndrome ruled out. 2. No reversible ischemia on the stress test. She also had a normal ejection fraction on echo. 3. Gastroesophageal reflux disease with moderate-size hiatal hernia. 4. Recent EGD that was negative except for hiatal hernia. 5. Negative cardiac catheterization in 2008. 6. Morbid obesity with a BMI of 50. 7. Hypertension. 8. Hypomagnesemia. 9. Depression. 10. Chronic anemia. 11. Impaired glucose tolerance. 12. Hypokalemia, replaced. PLAN: Plan of care was discussed with the patient and the family in detail. She stated understanding. Job ID: [id number]
== END 2019-08-04 18:58 | disposition home or self-care (01) ==
LOC: ERS 02:07 → 2SW 09:05
PROVIDERS: ADMIT Internal Medicine; ATTEND Internal Medicine
DX: R07.89 Other chest pain (principal); K21.9 Gastro-esophageal reflux disease without esophagitis; K44.9 Diaphragmatic hernia without obstruction or gangrene; I10 Essential (primary) hypertension; D50.9 Iron deficiency anemia, unspecified; F32.9 Major depressive disorder, single episode, unspecified; E87.6 Hypokalemia; E83.42 Hypomagnesemia; E89.0 Postprocedural hypothyroidism; E89.2 Postprocedural hypoparathyroidism; F41.9 Anxiety disorder, unspecified; E66.01 Morbid (severe) obesity due to excess calories; Z68.43 Body mass index [BMI] 50.0-59.9, adult; Z79.899 Other long term (current) drug therapy
CPT/HCPCS: 36415; 71045; 71275; 72191; 74175; 78452; 80053; 81003; 82150; 82550; 83690; 83735; 83880; 84484; 85025; 85379; 90471; 90686; 93005; 93017; 93306; 96361; 96365; 96374; 96375; 96376; A9500; G0008; G0378; J0153; J2060; J2270; J2405; J3475; Q9967

== ENCOUNTER 2019-08-05 04:46 | Emergency (ER) | payer OTHER ==
[2019-08-05] MEDS ORDERED: Ondansetron PF 4 MG/2 ML Vial ONE (05:25)
[2019-08-05] MEDS ORDERED: Pantoprazole 40 MG VIAL ONE (05:25)
[2019-08-05 05:36] LABS: #Eosinphils 0.1 thou/uL (0.0-0.7); #Lymphocytes 1.6 thou/uL (1.20-3.40); #Monocytes 0.4 thou/uL (0.11-0.59); #Neutrophils 6.3 thou/uL (1.40-6.50); %Basophils 0.4 % (0.0-1.0); %Eosinophils 1.3 % (0.0-10.0); %Monocytes 5.2 % (0.0-10.0); %Neutrophils 74.1 % (42.0-75.0); Hemoglobin 11.8 g/dL (12.0-16.0); Mean Corpuscular HGB CONC 31.8 g/dL (32.0-36.0); Mean Corpuscular Hemoglobin 21.9 pg (27.0-31.0); Mean Corpuscular Volume 68.9 fL (78.0-98.0); Mean Platelet Volume 11.2 fL (7.4-10.4); Platelet Count 284 thou/uL (130-400); RBC Distribution Width 15.4 % (11.5-14.5); Red Blood Cell (RBC) Count 5.37 mill/uL (4.20-5.40); White Blood Cell (WBC) Count 8.5 thou/uL (4.8-10.8)
[2019-08-05 05:42] LABS: PTT 27.3 SEC (22.9-36.1); Prothrombin Time 12.8 SEC (12.0-14.7)
[2019-08-05 06:05] LABS: ALT (SGPT) 18 U/L (8-55); AST (SGOT) 21 U/L (5-34); Albumin 3.6 g/dL (3.5-5.0); Alkaline Phosphatase 119 U/L (40-110); Anion Gap 10 mmol/L (10-20); BUN (Urea Nitrogen) 9 mg/dL (9.8-20.1); Bilirubin, Total 0.5 mg/dL (0.2-1.2); Calc. Creatinine Clearance 0 mL/min (70-130); Calcium 9.7 mg/dL (7.8-10.44); Carbon Dioxide 28 mmol/L (22-29); Chloride 105 mmol/L (98-107); Estimated GFR-MDRD Greater than 90; Globulin 3.6 g/dL (2.4-3.5); Glucose 163 mg/dL (70-105); Potassium 3.5 mmol/L (3.5-5.1); Protein, Total 7.2 g/dL (6.0-8.3); Sodium 139 mmol/L (136-145)
[2019-08-05] MEDS ORDERED: Morphine 2 MG/ML SYRINGE ONE (06:27)
[2019-08-05] MEDS ORDERED: Promethazine HCl 25 MG/ML VIAL ONE (06:27)
== END 2019-08-05 07:49 | disposition home or self-care (01) ==
LOC: ERS 04:46
DX: R11.2 Nausea with vomiting, unspecified (principal); I10 Essential (primary) hypertension
CPT/HCPCS: 36415; 80053; 82274; 84484; 85025; 85610; 85730; 86850; 86900; 86901; 93005; 94760; 96361; 96365; 96375; C9113; J2270; J2405; J2550

== ENCOUNTER 2019-09-24 05:47 | Day surgery (SDC) | payer OTHER ==
[2019-09-23 14:31] VITALS: BMI 49.6
[2019-09-24] MEDS ORDERED: Fentanyl 100 MCG/2 ML VIAL ONE ×3 (06:32→08:41)
[2019-09-24] MEDS ORDERED: Bupivacaine PF 0.5% 30 ML VIAL ONE (06:59)
[2019-09-24] MEDS ORDERED: EPINEPHrine 1 MG/ML AMP ONE (06:59)
[2019-09-24 07:37] LABS: Anion Gap 11 mmol/L (10-20); BUN (Urea Nitrogen) 10 mg/dL (9.8-20.1); Calc. Creatinine Clearance 171 mL/min (70-130); Calcium 9.5 mg/dL (7.8-10.44); Carbon Dioxide 27 mmol/L (22-29); Chloride 103 mmol/L (98-107); Estimated GFR-MDRD Greater than 90; Glucose 132 mg/dL (70-105); Potassium 3.4 mmol/L (3.5-5.1); Sodium 138 mmol/L (136-145)
--- NOTE | 2019-09-24 09:51 | OP ---
DATE OF PROCEDURE: 09/24/2019 PREOPERATIVE DIAGNOSIS: Xiphodynia. POSTOPERATIVE DIAGNOSIS: Xiphodynia. PROCEDURE: Resection of distal sternum/xiphoid. ANESTHESIA: General endotracheal. ESTIMATED BLOOD LOSS: Less than 50. SPECIMEN: Xiphoid. DESCRIPTION OF PROCEDURE: After consent was obtained, the patient was brought to the operating room and placed in supine position on the operating room table. Appropriate central line and monitors were placed and general endotracheal anesthesia was induced. Chest was prepped and draped in usual sterile fashion. A skin incision was made over the xiphoid. Fascia was dissected away from the xiphoid. The xiphoid was dissected out all the way to its junction with the sternum. The xiphoid was then sharply resected across the base of the sternum. Rongeurs were used to smooth the surface. Hemostasis was ensured. Wounds were copiously irrigated. The fascia was then reapproximated with interrupted 0 Vicryl [id number] sutures. Wounds were irrigated and closed in multiple layers and Dermabond applied to the skin. Marcaine was used to block the field prior to completion. Xiphoid was sent as a specimen. Needle, sponge, and instrument counts were all reported as correct at the end of the procedure. Job ID: [id number]
[2019-09-24] MEDS ORDERED: Dexamethasone 20 MG/5 ML VIAL ONE (10:01)
[2019-09-24] MEDS ORDERED: Glycopyrrolate 0.2 MG/ML 5 ML SYRINGE ONE (10:01)
[2019-09-24] MEDS ORDERED: PROPOFOL 200 MG/20 ML VIAL ONE (10:01)
[2019-09-24] MEDS ORDERED: Lidocaine 1% PF 5 ML VIAL ONE (10:01)
[2019-09-24] MEDS ORDERED: Metoclopramide HCl 10 MG/2 ML VIAL ONE (10:01)
[2019-09-24] MEDS ORDERED: Rocuronium Bromide 10 MG/ML (10ML VIAL) ONE (10:01)
[2019-09-24] MEDS ORDERED: Ondansetron PF 4 MG/2 ML Vial ONE (10:01)
[2019-09-24] MEDS ORDERED: Succinylcholine Chloride 20 MG/ML 10 ml SYRINGE FS ONE (10:01)
[2019-09-24] MEDS ORDERED: Ketorolac Tromethamine 30 MG/ML VIAL ONE (10:01)
[2019-09-24] MEDS ORDERED: HYDROcodone/Acetaminophen 5/325 mg Tablet ONE (10:28)
== END 2019-09-24 10:34 | disposition home or self-care (01) ==
LOC: SDC 05:47
PROVIDERS: ATTEND Thoracic Surgery (Cardiothoracic Vascular Surgery)
PROC: 0PB00ZZ Excision of Sternum, Open Approach (ICD-10-PCS; principal; 2019-09-24)
DX: R07.89 Other chest pain (principal); G47.33 Obstructive sleep apnea (adult) (pediatric); E89.2 Postprocedural hypoparathyroidism; M19.90 Unspecified osteoarthritis, unspecified site; G43.909 Migraine, unspecified, not intractable, without status migrainosus; F41.9 Anxiety disorder, unspecified; E66.01 Morbid (severe) obesity due to excess calories; Z68.42 Body mass index [BMI] 45.0-49.9, adult; Z79.899 Other long term (current) drug therapy
CPT/HCPCS: 80048; 88305; J0171; J0690; J1100; J1885; J2001; J2405; J2704; J2765; J3010; S0020

== ENCOUNTER 2020-06-26 18:17 | Emergency (ER) | payer OTHER | END 2020-06-26 19:28 | disposition home or self-care (01) | LOC: ERS 18:17 | DX: R04.0 Epistaxis (principal); E03.9 Hypothyroidism, unspecified; I10 Essential (primary) hypertension; F41.9 Anxiety disorder, unspecified | CPT/HCPCS: 99283 ==

== ENCOUNTER 2020-07-09 13:30 | Outpatient (CLI) | payer OTHER ==
--- NOTE | 2020-07-09 15:17 | BD ---
Exam: DEXA Bone Density 07/09/20 HISTORY: Postmenopausal screening for osteoporosis. FINDINGS: Lumbar Spine: BMD (g/cm2) T-SCORE Z-SCORE L1 0.966 -0.2 0.3 L2 1.003 -0.2 0.4 L3 1.182 0.9 1.6 L4 1.071 0.1 0.8 L1-L4 1.058 0.1 0.8 Femoral Neck: 0.686 -1.5 -0.8 Total Femur: 0.900 -0.3 -0.1 The ten year fracture risk for a major osteoporotic fracture is 2.9% and for hip fracture is 0.2%. Impression: Osteopenia. POS: [facility]
== END 2020-07-09 13:31 | disposition home or self-care (01) ==
LOC: BICMAMMO 13:30
PROVIDERS: ATTEND Physician Assistant
DX: Z13.820 Encounter for screening for osteoporosis (principal); M85.859 Other specified disorders of bone density and structure, unspecified thigh
CPT/HCPCS: 77080

== ENCOUNTER 2020-10-20 08:03 | Emergency (ER) | payer BC, OTHER ==
[2020-10-20 08:58] LABS: #Basophils 0.1 thou/uL (0.0-0.2); #Eosinphils 0.3 thou/uL (0.0-0.7); #Monocytes 0.6 thou/uL (0.11-0.59); #Neutrophils 4.1 thou/uL (1.40-6.50); %Basophils 0.9 % (0.0-1.0); %Eosinophils 3.7 % (0.0-10.0); %Lymphocytes 29.1 % (21.0-51.0); %Monocytes 7.8 % (0.0-10.0); %Neutrophils 58.5 % (42.0-75.0); Hemoglobin 11.3 g/dL (12.0-16.0); Mean Corpuscular HGB CONC 30.2 g/dL (32.0-36.0); Mean Corpuscular Hemoglobin 21.9 pg (27.0-31.0); Mean Corpuscular Volume 72.4 fL (78.0-98.0); Mean Platelet Volume 10.6 fL (7.4-10.4); Platelet Count 281 thou/uL (130-400); Red Blood Cell (RBC) Count 5.17 mill/uL (4.20-5.40)
[2020-10-20] MEDS ORDERED: Ketorolac Tromethamine 30 MG/ML VIAL ONE (08:58)
[2020-10-20 09:09] LABS: ALT (SGPT) 11 U/L (8-55); AST (SGOT) 13 U/L (5-34); Albumin 3.4 g/dL (3.5-5.0); Alkaline Phosphatase 120 U/L (40-110); Anion Gap 8 mmol/L (10-20); BUN (Urea Nitrogen) 10 mg/dL (9.8-20.1); Bilirubin, Total 0.4 mg/dL (0.2-1.2); Calc. Creatinine Clearance 0 mL/min (70-130); Calcium 8.7 mg/dL (7.8-10.44); Carbon Dioxide 28 mmol/L (22-29); Chloride 111 mmol/L (98-107); Globulin 3.1 g/dL (2.4-3.5); Glucose 120 mg/dL (70-105); Lipase 185 U/L (8-78); Potassium 3.9 mmol/L (3.5-5.1); Protein, Total 6.5 g/dL (6.0-8.3); Sodium 143 mmol/L (136-145)
[2020-10-20 09:16] LABS: Hypochromia SLIGHT = 6-15 cells (100X) (0-5/hpf); MDiff Complete? YES; Microcytosis SLIGHT = 6-15 cells (100X) (0-5/hpf); Platelet Morphology Comment Appears Adequate; Polychromasia SLIGHT = 2-3 cells (100X) (0-2/hpf)
[2020-10-20 10:52] LABS: Bilirubin Negative (Negative); Blood, Urine Negative (Negative); Glucose, Urine (Dipstick) Negative (Negative); Ketone, Urine Negative (Negative); Leukocyte Negative (Negative); Nitrite Negative (Negative); Protein, Urine (Dipstick) Negative (Neg-Trace); Urobilinogen 0.2 mg/dL (Less than 2)
[2020-10-20 10:56] LABS: Clarity Clear (Clear)
--- NOTE | 2020-10-20 11:17 | CT ---
CT ABDOMEN AND PELVIS WITH IV CONTRAST: INDICATION: Abdominal pain. COMPARISON: CT abdomen and pelvis 06/27/2019. FINDINGS: Lung bases clear. Large fixed diaphragmatic hernia again noted with a significant portion of the sto mach fixed above the diaphragm. The liver, spleen, and pancreas are unremarkable. Post cholecystectomy changes. Left adrenal has a nodular appearance to the lateral limb. This is stable. There are calcifications in the upper collecting structures of the left kidney measuring in the 3-4 m m range which appear stable. There are parenchymal calcifications in the right kidney which appear s table. Cortical scarring in the right mid kidney is stable. No hydronephrosis. No evidence of uret eral calculus or obstruction. Urinary bladder unremarkable. Small bowel loops normal caliber. Appendix not identified. No evidence of appendicitis. Diverticul osis of the left colon and sigmoid. No CT evidence of diverticulitis. Aorta normal caliber. Images through the pelvis show evidence of hysterectomy. Osseous structures unremarkable. There are rounded densities in the subcutaneous adipose tissue of the anterior abdomen which are unch anged from prior exam probably representing scarring or granuloma. IMPRESSION: 1. Large fixed diaphragmatic hernia again noted. 2. Renal calcifications appear stable. 3. Diverticulosis. 4. No acute intraabdominal process identified. POS: OFF
[2020-10-20] MEDS ORDERED: Iopamidol-370 76% 500 ML 1 ML ONE (14:17)
== END 2020-10-20 12:01 | disposition home or self-care (01) ==
LOC: ERS 08:03
DX: K44.9 Diaphragmatic hernia without obstruction or gangrene (principal); R74.8 Abnormal levels of other serum enzymes; R11.0 Nausea; E03.9 Hypothyroidism, unspecified
CPT/HCPCS: 36415; 74177; 80053; 81003; 83690; 85025; 93005; 96374; J1885; Q9967

== ENCOUNTER 2021-02-08 08:29 | Outpatient (CLI) | payer BC | END 2021-02-08 08:30 | disposition home or self-care (01) | LOC: BICMAMMO 08:29 | PROVIDERS: ATTEND Internal Medicine Hematology & Oncology | DX: Z12.31 Encounter for screening mammogram for malignant neoplasm of breast (principal); Z80.3 Family history of malignant neoplasm of breast; Z85.3 Personal history of malignant neoplasm of breast; Z98.82 Breast implant status; Z98.890 Other specified postprocedural states | CPT/HCPCS: 77063; 77067 ==

== ENCOUNTER 2021-08-19 10:02 | Outpatient (CLI) | payer BC ==
[2021-08-19 11:49] LABS: Hemoglobin 12.1 g/dL (12.0-15.5); Mean Corpuscular HGB CONC 29.4 g/dL (32.0-36.0); Mean Corpuscular Hemoglobin 20.2 pg (27.0-33.0); Mean Corpuscular Volume 68.6 fl (81.6-98.3); Platelet Count 333 10x3/uL (150-450); RBC Distribution Width 20.2 % (11.5-14.5); Red Blood Cell (RBC) Count 5.99 10x6/uL (3.90-5.03); White Blood Cell (WBC) Count 6.8 10x3/uL (3.5-10.5)
[2021-08-19 12:04] LABS: Anion Gap 11 mmol/L (10-20); BUN (Urea Nitrogen) 9 mg/dL (9.8-20.1); Calc. Creatinine Clearance 0 mL/min (70-130); Calcium 9.5 mg/dL (7.8-10.44); Carbon Dioxide 27 mmol/L (23-31); Chloride 110 mmol/L (98-107); Glucose 120 mg/dL (80-115); Potassium 4.5 mmol/L (3.5-5.1); Sodium 143 mmol/L (136-145)
[2021-08-19 12:21] LABS: Thyroid Stimulating Hormone 2.3417 uIU/mL (0.35-4.94)
[2021-08-19 12:30] LABS: MDiff Complete? YES
[2021-08-19 12:33] LABS: Eosinophils 4 % (0-10); Lymphocytes 36 % (21-51); Monocytes 4 % (0-10); Neutrophil 55 % (42-75)
[2021-08-19 12:34] LABS: Hypochromia SLIGHT = 6-15 cells (100X) (0-5/hpf); Microcytosis MODERATE=15-30 cells (100X) (0-5/hpf)
[2021-08-19 12:35] LABS: Platelet Morphology Comment Appears Adequate
[2021-08-19 20:14] LABS: Hemoglobin A1c 6.3 % (4.0-6.0)
[2021-08-19 21:44] LABS: SARS-CoV-2 PCR by NAA Not Detected (NotDetected)
== END 2021-08-19 10:03 | disposition home or self-care (01) ==
LOC: LABBT 10:02
PROVIDERS: ATTEND Surgery
DX: Z01.812 Encounter for preprocedural laboratory examination (principal); E88.81 Metabolic syndrome and other insulin resistance; Z20.822 Contact with and (suspected) exposure to COVID-19
CPT/HCPCS: 80048; 82306; 83036; 84443; 85025; U0003; U0005

== ENCOUNTER 2021-08-24 09:46 | Observation (INO) | payer BC ==
[2021-08-22 15:18] VITALS: BMI 50.8
[2021-08-24] MEDS ORDERED: ceFAZolin 2 GM/DEX 5% 100 ML BAG ONE (10:45)
[2021-08-24] MEDS ORDERED: Fentanyl 100 MCG/2 ML VIAL ONE ×3 (12:25→15:32)
[2021-08-24] MEDS ORDERED: SUGAMMADEX SODIUM 200 MG/2 ML VIAL ONE (12:25)
[2021-08-24] MEDS ORDERED: Lidocaine 1% w/Epinephrine 1:100K 20 ML VIAL ONE (12:29)
[2021-08-24] MEDS ORDERED: Bupivacaine 0.25% 10 ML VIAL ONE (12:29)
[2021-08-24] MEDS ORDERED: Lidocaine 1% PF 5 ML VIAL ONE (12:48)
[2021-08-24] MEDS ORDERED: Phenylephrine 10 MG/ML VIAL ONE (12:48)
[2021-08-24] MEDS ORDERED: Ondansetron PF 4 MG/2 ML Vial ONE (12:48)
[2021-08-24] MEDS ORDERED: Glycopyrrolate 0.2 MG/ML 5 ML SYRINGE ONE (12:48)
[2021-08-24] MEDS ORDERED: Rocuronium Bromide 10 MG/ML (10ML VIAL) ONE (12:48)
[2021-08-24] MEDS ORDERED: Dexamethasone 20 MG/5 ML VIAL ONE (12:48)
[2021-08-24] MEDS ORDERED: ePHEDrine 50 MG/ML VIAL ONE (12:48)
[2021-08-24] MEDS ORDERED: PROPOFOL 200 MG/20 ML VIAL ONE (12:48)
[2021-08-24] MEDS ORDERED: hydrALAZINE 20 MG/ML VIAL SLOW IVP PRN (16:12)
[2021-08-24] MEDS ORDERED: Promethazine HCl 25 MG/ML VIAL IM PRN (16:12)
[2021-08-24] MEDS ORDERED: Hydrocodone-Acetamin 15 ML UDCUP PO PRN (16:12)
[2021-08-24] MEDS ORDERED: Dextrose 5% in Water 1,000 ML IV PRN (16:12)
[2021-08-24] MEDS ORDERED: Dextrose 50% Abboject 50 ML SYRINGE SLOW IVP PRN (16:12)
[2021-08-24] MEDS ORDERED: Acetaminophen 325 MG TAB PO PRN (16:12)
[2021-08-24] MEDS: Ondansetron PF 4 MG/2 ML Vial IVP PRN ×2 (16:59→23:05)
[2021-08-24] MEDS: D5 1/2 NS w/20 mEq KCL 1,000 ML IV SCH (17:03)
[2021-08-24] MEDS: Morphine 4 MG/ML VIAL SLOW IVP PRN (17:08)
[2021-08-24] MEDS: Famotidine/PF 20 mg/2ml Vial SLOW IVP SCH (21:11)
[2021-08-24] MEDS: Famotidine 20 MG TAB PO SCH (21:12)
[2021-08-25] MEDS: D5 1/2 NS w/20 mEq KCL 1,000 ML IV SCH (04:46)
[2021-08-25] MEDS: Ondansetron PF 4 MG/2 ML Vial IVP PRN (06:58)
[2021-08-25 08:04] LABS: #Lymphocytes 1.8 thou/uL (1.20-3.40); #Monocytes 0.9 thou/uL (0.11-0.59); #Neutrophils 8.2 thou/uL (1.40-6.50); %Basophils 0.2 % (0.0-1.0); %Eosinophils 0.1 % (0.0-10.0); %Lymphocytes 16.2 % (21.0-51.0); %Monocytes 8.6 % (0.0-10.0); %Neutrophils 74.9 % (42.0-75.0); Hemoglobin 11.9 g/dL (12.0-16.0); Mean Corpuscular HGB CONC 30.6 g/dL (32.0-36.0); Mean Corpuscular Hemoglobin 21.2 pg (27.0-31.0); Mean Corpuscular Volume 69.5 fL (78.0-98.0); Mean Platelet Volume 7.5 fL (7.4-10.4); Platelet Count 272 thou/uL (130-400); RBC Distribution Width 17.6 % (11.5-14.5)
[2021-08-25 08:21] LABS: Hypochromia SLIGHT = 6-15 cells (100X) (0-5/hpf); MDiff Complete? YES; Microcytosis MODERATE=15-30 cells (100X) (0-5/hpf); Platelet Morphology Comment Appears Adequate; Polychromasia SLIGHT = 2-3 cells (100X) (0-2/hpf)
[2021-08-25] MEDS: Morphine 4 MG/ML VIAL SLOW IVP PRN (08:21)
[2021-08-25 08:48] LABS: Calcium 9.3 mg/dL (7.8-10.44); Chloride 106 mmol/L (98-107); Potassium 4.1 mmol/L (3.5-5.1); Sodium 137 mmol/L (136-145)
[2021-08-25] MEDS ORDERED: Empagliflozin 25 MG TAB PO SCH (09:00)
[2021-08-25] MEDS ORDERED: Potassium Chloride 20 MEQ TAB PO SCH (09:00)
[2021-08-25] MEDS ORDERED: Bupropion 100 MG SR TAB PO SCH (09:00)
[2021-08-25] MEDS ORDERED: Enoxaparin Sodium 40 MG/0.4 ML SYRINGE SC SCH (09:00)
[2021-08-25] MEDS ORDERED: Escitalopram Oxalate 10 mg Tablet PO SCH (09:00)
[2021-08-25 09:01] LABS: Anion Gap 11 mmol/L (10-20); BUN (Urea Nitrogen) 7 mg/dL (9.8-20.1); Calc. Creatinine Clearance 179 mL/min (70-130); Carbon Dioxide 24 mmol/L (23-31); Glucose 129 mg/dL (80-115)
[2021-08-25] MEDS: Famotidine 20 MG TAB PO SCH (10:37)
[2021-08-25] MEDS: Famotidine/PF 20 mg/2ml Vial SLOW IVP SCH (10:39)
[2021-08-25 12:13] VITALS: BP 163/84; TEMP 98.5
== END 2021-08-25 14:12 | disposition home or self-care (01) ==
LOC: SDC 09:46 → SJJU 16:05
PROVIDERS: ADMIT Surgery; ATTEND Surgery
PROC: 0BQT4ZZ Repair Diaphragm, Percutaneous Endoscopic Approach (ICD-10-PCS; principal; 2021-08-25)
PROC: 0DV44ZZ Restriction of Esophagogastric Junction, Percutaneous Endoscopic Approach (ICD-10-PCS; 2021-08-25)
DX: K44.9 Diaphragmatic hernia without obstruction or gangrene (principal); G47.33 Obstructive sleep apnea (adult) (pediatric); M17.0 Bilateral primary osteoarthritis of knee; G43.909 Migraine, unspecified, not intractable, without status migrainosus; Z79.84 Long term (current) use of oral hypoglycemic drugs; Z79.899 Other long term (current) drug therapy
CPT/HCPCS: 36415; 80048; 85025; 96372; 96374; 96375; 96376; G0378; J0360; J1100; J1650; J2270; J2370; J2405; J2704; J3010; J3480; J3490; S0020

== ENCOUNTER 2021-10-21 10:59 | Outpatient (CLI) | payer BC ==
[2021-10-21 12:55] LABS: Anion Gap 14 mmol/L (10-20); BUN (Urea Nitrogen) 6 mg/dL (9.8-20.1); Calc. Creatinine Clearance 0 mL/min (70-130); Calcium 9.5 mg/dL (7.8-10.44); Carbon Dioxide 25 mmol/L (23-31); Chloride 108 mmol/L (98-107); Glucose 90 mg/dL (80-115); Potassium 4.7 mmol/L (3.5-5.1); Sodium 142 mmol/L (136-145)
[2021-10-21 21:44] LABS: SARS-CoV-2 PCR by NAA Not Detected (NotDetected)
== END 2021-10-21 11:00 | disposition home or self-care (01) ==
LOC: LABBT 10:59
PROVIDERS: ATTEND Surgery
DX: Z01.812 Encounter for preprocedural laboratory examination (principal); M79.9 Soft tissue disorder, unspecified; Z20.822 Contact with and (suspected) exposure to COVID-19
CPT/HCPCS: 80048; U0003; U0005

== ENCOUNTER 2021-10-26 09:49 | Day surgery (SDC) | payer BC ==
[2021-10-20 12:43] VITALS: BMI 48.9
[2021-10-26] MEDS ORDERED: Fentanyl 250 MCG/5 ML VIAL ONE (10:42)
[2021-10-26] MEDS ORDERED: Bupivacaine PF 0.5% 30 ML VIAL ONE (13:30)
[2021-10-26] MEDS ORDERED: Lidocaine 2% w/Epinephrine 1:200K 20 ML VIAL ONE (13:30)
[2021-10-26] MEDS ORDERED: SUGAMMADEX SODIUM 200 MG/2 ML VIAL ONE (13:30)
[2021-10-26] MEDS ORDERED: ceFAZolin Sodium (SDC) 2 GM/100 ML BAG ONE (13:34)
[2021-10-26] MEDS ORDERED: Dexamethasone 20 MG/5 ML VIAL ONE (13:47)
[2021-10-26] MEDS ORDERED: Ondansetron PF 4 MG/2 ML Vial ONE (13:47)
[2021-10-26] MEDS ORDERED: PROPOFOL 200 MG/20 ML VIAL ONE (13:47)
[2021-10-26] MEDS ORDERED: Glycopyrrolate 0.2 MG/ML 5 ML SYRINGE ONE (13:47)
[2021-10-26] MEDS ORDERED: Rocuronium Bromide 10 MG/ML (10ML VIAL) ONE (13:47)
[2021-10-26] MEDS ORDERED: Lidocaine 1% PF 5 ML VIAL ONE (13:47)
[2021-10-26] MEDS ORDERED: HYDROcodone/Acetaminophen 5/325 mg Tablet ONE (17:16)
== END 2021-10-26 17:20 | disposition home or self-care (01) ==
LOC: SDC 09:49
PROVIDERS: ATTEND Surgery
DX: D17.1 Benign lipomatous neoplasm of skin and subcutaneous tissue of trunk (principal); D23.4 Other benign neoplasm of skin of scalp and neck; G47.33 Obstructive sleep apnea (adult) (pediatric); K21.9 Gastro-esophageal reflux disease without esophagitis; Z85.3 Personal history of malignant neoplasm of breast; Z79.84 Long term (current) use of oral hypoglycemic drugs; Z79.899 Other long term (current) drug therapy
CPT/HCPCS: 88304; 88305; 88313; J0690; J1100; J2405; J2704; J3010; S0020

== ENCOUNTER 2022-02-09 09:04 | Outpatient (CLI) | payer BC | END 2022-02-09 09:05 | disposition home or self-care (01) | LOC: BICMAMMO 09:04 | PROVIDERS: ATTEND Internal Medicine Hematology & Oncology | DX: Z12.31 Encounter for screening mammogram for malignant neoplasm of breast (principal); Z80.3 Family history of malignant neoplasm of breast; Z85.3 Personal history of malignant neoplasm of breast; Z98.890 Other specified postprocedural states; Z98.82 Breast implant status | CPT/HCPCS: 77063; 77067 ==

== ENCOUNTER 2022-03-17 07:47 | Outpatient (CLI) | payer BC | END 2022-03-17 07:48 | disposition home or self-care (01) | LOC: LABBT 07:47 | PROVIDERS: ATTEND Internal Medicine Gastroenterology | DX: R10.13 Epigastric pain (principal); K59.00 Constipation, unspecified; K92.1 Melena; Z86.010 Personal history of colon polyps | CPT/HCPCS: 87811 ==

== ENCOUNTER 2022-03-22 07:29 | Day surgery (SDC) | payer BC ==
[2022-03-21 12:31] VITALS: BMI 49.6
[2022-03-22] MEDS ORDERED: Midazolam HCl 2 mg/2 ml Vial ONE (09:41)
[2022-03-22] MEDS ORDERED: Ketamine 50 MG/ML (10ML VIAL) ONE (09:41)
[2022-03-22] MEDS ORDERED: Glycopyrrolate 0.2 MG/ML 5 ML SYRINGE ONE (09:41)
[2022-03-22] MEDS ORDERED: Fentanyl 100 MCG/2 ML VIAL ONE (09:41)
== END 2022-03-22 12:01 | disposition home or self-care (01) ==
LOC: SDC 07:29
PROVIDERS: ATTEND Internal Medicine Gastroenterology
PROC: 0DBL8ZZ Excision of Transverse Colon, Via Natural or Artificial Opening Endoscopic (ICD-10-PCS; principal; 2022-03-22)
DX: D12.3 Benign neoplasm of transverse colon (principal); K57.30 Diverticulosis of large intestine without perforation or abscess without bleeding; K29.50 Unspecified chronic gastritis without bleeding; K21.9 Gastro-esophageal reflux disease without esophagitis; K44.9 Diaphragmatic hernia without obstruction or gangrene; Z86.010 Personal history of colon polyps; Z79.84 Long term (current) use of oral hypoglycemic drugs; Z79.899 Other long term (current) drug therapy; Z20.822 Contact with and (suspected) exposure to COVID-19
CPT/HCPCS: 87811; 88305; 88342; J2250; J3010

== ENCOUNTER 2022-04-06 22:07 | Emergency (ER) | payer BC ==
[~2022-04-06 22:07] MED LIST: Iopamidol-370 76% 500 ML 1 ML ONE
[2022-04-06 23:10] LABS: Hemoglobin 12.3 g/dL (12.0-16.0); Mean Corpuscular HGB CONC 31.5 g/dL (32.0-36.0); Mean Corpuscular Volume 73.1 fL (78.0-98.0); Mean Platelet Volume 10.6 fL (7.4-10.4); Platelet Count 228 thou/uL (130-400); Red Blood Cell (RBC) Count 5.35 mill/uL (4.20-5.40); White Blood Cell (WBC) Count 10.1 thou/uL (4.8-10.8)
[2022-04-06 23:23] LABS: ALT (SGPT) 12 U/L (8-55); AST (SGOT) 15 U/L (5-34); Albumin 3.7 g/dL (3.4-4.8); Alkaline Phosphatase 143 U/L (40-110); Anion Gap 13 mmol/L (10-20); BUN (Urea Nitrogen) 12 mg/dL (9.8-20.1); Bilirubin, Total 0.5 mg/dL (0.2-1.2); Calc. Creatinine Clearance 0 mL/min (70-130); Carbon Dioxide 29 mmol/L (23-31); Chloride 104 mmol/L (98-107); Estimated GFR 71; Globulin 3.3 g/dL (2.4-3.5); Glucose 180 mg/dL (80-115); Lipase 24 U/L (8-78); Potassium 4.4 mmol/L (3.5-5.1); Sodium 142 mmol/L (136-145)
[2022-04-06 23:24] LABS: #Eosinphils 0.2 thou/uL (0.0-0.7); #Lymphocytes 1.6 thou/uL (1.20-3.40); #Neutrophils 7.3 thou/uL (1.40-6.50); %Basophils 0.3 % (0.0-1.0); %Eosinophils 2.3 % (0.0-10.0); %Lymphocytes 15.7 % (21.0-51.0); %Monocytes 9.7 % (0.0-10.0); Anisocytosis SLIGHT = 6-15 cells (100X) (0-5/hpf); MDiff Complete? YES; Microcytosis SLIGHT = 6-15 cells (100X) (0-5/hpf)
[2022-04-06] MEDS ORDERED: Morphine 4 MG/ML VIAL ONE (23:35)
[2022-04-06] MEDS ORDERED: Ondansetron PF 4 MG/2 ML Vial ONE (23:47)
[2022-04-07 00:49] LABS: Bilirubin Negative (Negative); Blood, Urine Negative (Negative); Clarity Clear (Clear); Glucose, Urine (Dipstick) Normal (Negative); Ketone, Urine Negative (Negative); Leukocyte Negative Leu/uL (Negative); Nitrite Negative (Negative); Protein, Urine (Dipstick) Negative (Neg-Trace); Specific Gravity, Urine 1.022 (1.002-1.036); Urobilinogen Normal mg/dL (Less than 2); pH, Urine 7.5 (5.0-9.0)
[2022-04-07] MEDS ORDERED: HYDROcodone/Acetaminophen 5/325 mg Tablet ONE (01:40)
== END 2022-04-07 01:48 | disposition home or self-care (01) ==
LOC: ERS 22:07
DX: N13.2 Hydronephrosis with renal and ureteral calculous obstruction (principal); E03.9 Hypothyroidism, unspecified; Z87.442 Personal history of urinary calculi; Z85.3 Personal history of malignant neoplasm of breast; Z79.899 Other long term (current) drug therapy
CPT/HCPCS: 36415; 74177; 80053; 81003; 83690; 85025; 96374; 96375; J2270; J2405; Q9967

== ENCOUNTER 2022-05-30 08:09 | Outpatient (CLI) | payer BC ==
[2022-05-30 09:36] LABS: Bilirubin Neg (Negative); Blood, Urine Negative (Negative); Clarity Clear (Clear); Glucose, Urine (Dipstick) Normal (Negative); Ketone, Urine Negative (Negative); Leukocyte 100 (Negative); Nitrite Negative (Negative); Protein, Urine (Dipstick) Negative (Neg-Trace)
[2022-05-30 09:43] LABS: Hemoglobin 11.7 g/dL (12.0-15.5); Mean Corpuscular Hemoglobin 21.5 pg (27.0-33.0); Mean Corpuscular Volume 71.8 fl (81.6-98.3); Mean Platelet Volume 11.3 fl (7.4-10.4); Platelet Count 302 10x3/uL (150-450); RBC Distribution Width 18.2 % (11.5-14.5); Red Blood Cell (RBC) Count 5.43 10x6/uL (3.90-5.03); White Blood Cell (WBC) Count 8.4 10x3/uL (3.5-10.5)
[2022-05-30 09:49] LABS: Bacteria/HPF 1+ HPF (None Seen); Calcium Oxalate Crystals Rare HPF (None Seen); RBC/HPF 0-3 HPF (0-3); Squamous Epithelial 0-3 HPF (0-3); WBC/HPF 0-3 HPF (0-3)
[2022-05-30 09:52] LABS: PTT 25.9 sec (22.0-33.0); Prothrombin Time 10.4 sec (9.5-12.1)
[2022-05-30 10:15] LABS: Anion Gap 15 mmol/L (10-20); BUN (Urea Nitrogen) 8 mg/dL (9.8-20.1); Calc. Creatinine Clearance 0 mL/min (70-130); Calcium 9.5 mg/dL (7.8-10.44); Carbon Dioxide 27 mmol/L (23-31); Chloride 107 mmol/L (98-107); Estimated GFR 93; Glucose 134 mg/dL (80-115); Potassium 4.7 mmol/L (3.5-5.1); Sodium 144 mmol/L (136-145)
== END 2022-05-30 08:10 | disposition home or self-care (01) ==
LOC: LABBT 08:09
PROVIDERS: ATTEND Urology
DX: Z01.818 Encounter for other preprocedural examination (principal); E11.65 Type 2 diabetes mellitus with hyperglycemia; N20.0 Calculus of kidney; E31.21 Multiple endocrine neoplasia [MEN] type I; E21.3 Hyperparathyroidism, unspecified; E66.01 Morbid (severe) obesity due to excess calories; Z20.822 Contact with and (suspected) exposure to COVID-19
CPT/HCPCS: 80048; 81001; 85027; 85610; 85730; 87086; 87811; 93005; 93010

== ENCOUNTER 2022-06-01 07:29 | Day surgery (SDC) | payer BC ==
[2022-05-31 09:30] VITALS: BMI 49.6
[2022-06-01] MEDS ORDERED: Iopamidol 30 ML ONE (11:05)
[2022-06-01] MEDS ORDERED: B & O ONE (11:05)
[2022-06-01] MEDS ORDERED: SUGAMMADEX SODIUM 200 MG/2 ML VIAL ONE (11:09)
[2022-06-01] MEDS ORDERED: Fentanyl 100 MCG/2 ML VIAL ONE ×2 (11:09)
[2022-06-01] MEDS ORDERED: Levofloxacin 500 mg/D5W 100 ml Premix Bag ONE (11:23)
[2022-06-01] MEDS ORDERED: Succinylcholine 200 MG/10 ml SYRINGE FS ONE (11:33)
[2022-06-01] MEDS ORDERED: Dexamethasone 20 MG/5 ML VIAL ONE (11:33)
[2022-06-01] MEDS ORDERED: Phenylephrine 10 MG/ML VIAL ONE (11:33)
[2022-06-01] MEDS ORDERED: Rocuronium Bromide 10 MG/ML (10ML VIAL) ONE (11:33)
[2022-06-01] MEDS ORDERED: ePHEDrine 50 MG/ML VIAL ONE (11:33)
[2022-06-01] MEDS ORDERED: PROPOFOL 200 MG/20 ML VIAL ONE (11:33)
[2022-06-01] MEDS ORDERED: Ondansetron PF 4 MG/2 ML Vial ONE (11:33)
[2022-06-01] MEDS ORDERED: Lidocaine 1% MPF 2 ML VIAL ONE (11:33)
[2022-06-01] MEDS ORDERED: Phenazopyridine HCl 100 MG TAB ONE (13:21)
[2022-06-01] MEDS ORDERED: Oxybutynin 5 MG TAB ONE (13:21)
== END 2022-06-01 15:00 | disposition home or self-care (01) ==
LOC: SDC 07:29
PROVIDERS: ATTEND Urology
PROC: 0T778DZ Dilation of Left Ureter with Intraluminal Device, Via Natural or Artificial Opening Endoscopic (ICD-10-PCS; principal; 2022-06-01)
PROC: 0TC48ZZ Extirpation of Matter from Left Kidney Pelvis, Via Natural or Artificial Opening Endoscopic (ICD-10-PCS; principal; 2022-06-01)
PROC: 0TC38ZZ Extirpation of Matter from Right Kidney Pelvis, Via Natural or Artificial Opening Endoscopic (ICD-10-PCS; principal; 2022-06-01)
DX: N20.0 Calculus of kidney (principal); N81.10 Cystocele, unspecified; K21.9 Gastro-esophageal reflux disease without esophagitis; E31.21 Multiple endocrine neoplasia [MEN] type I; E11.9 Type 2 diabetes mellitus without complications; E66.01 Morbid (severe) obesity due to excess calories; Z68.42 Body mass index [BMI] 45.0-49.9, adult; Z79.1 Long term (current) use of non-steroidal anti-inflammatories (NSAID); Z79.899 Other long term (current) drug therapy
CPT/HCPCS: 76000; 82365; 88300; C1769; C2617; J1100; J1956; J2370; J2405; J2704; J3010; J3490; Q9967

== ENCOUNTER 2022-10-02 08:39 | Outpatient (CLI) | payer BC ==
[2022-10-02 09:15] LABS: #Basophils 0.1 10x3/uL (0.0-0.2); #Eosinphils 0.3 10x3/uL (0.0-0.5); #Monocytes 0.6 10x3/uL (0.0-1.1); %Basophils 0.9 % (0.0-2.0); %Eosinophils 3.6 % (0.0-6.0); %Monocytes 7.1 % (0.0-10.0); %Neutrophils 63.3 % (40.0-75.0); Hemoglobin 11.2 g/dL (12.0-15.5); Mean Corpuscular HGB CONC 30.8 g/dL (32.0-36.0); Mean Corpuscular Volume 71.5 fl (81.6-98.3); Mean Platelet Volume 10.7 fl (7.4-10.4); Platelet Count 302 10x3/uL (150-450); RBC Distribution Width 17.1 % (11.5-14.5); Red Blood Cell (RBC) Count 5.09 10x6/uL (3.90-5.03); White Blood Cell (WBC) Count 7.9 10x3/uL (3.5-10.5)
[2022-10-02 09:47] LABS: Anion Gap 12 mmol/L (10-20); BUN (Urea Nitrogen) 7 mg/dL (9.8-20.1); Calc. Creatinine Clearance 0 mL/min (70-130); Calcium 9.1 mg/dL (7.8-10.44); Carbon Dioxide 25 mmol/L (23-31); Chloride 109 mmol/L (98-107); Estimated GFR 98; Glucose 208 mg/dL (80-115); Potassium 3.7 mmol/L (3.5-5.1); Sodium 142 mmol/L (136-145)
== END 2022-10-02 08:40 | disposition home or self-care (01) ==
LOC: LABBT 08:39
PROVIDERS: ATTEND Surgery
DX: Z01.818 Encounter for other preprocedural examination (principal); M79.9 Soft tissue disorder, unspecified
CPT/HCPCS: 80048; 85025; 93005; 93010

== ENCOUNTER 2022-10-05 06:07 | Day surgery (SDC) | payer BC ==
[2022-10-03 13:10] VITALS: BMI 52.0
[2022-10-05] MEDS ORDERED: Famotidine/PF 20 mg/2ml Vial ONE (07:55)
[2022-10-05] MEDS ORDERED: Lidocaine 2% PF 5 ML VIAL ONE (08:18)
[2022-10-05] MEDS ORDERED: Bupivacaine HCl 0.5%/Epinephrine 1:200,000/PF 30 ml Vial ONE (08:18)
[2022-10-05] MEDS ORDERED: Sodium Chloride 0.9% 100 ML ONE (08:31)
[2022-10-05] MEDS ORDERED: CEFAZOLIN 2 GM VIAL ONE (08:31)
[2022-10-05] MEDS ORDERED: SUGAMMADEX SODIUM 200 MG/2 ML VIAL ONE (08:57)
[2022-10-05] MEDS ORDERED: fentaNYL PF 100 MCG/2 ML SYRINGE ONE (08:57)
[2022-10-05] MEDS ORDERED: PROPOFOL 20 ML ONE (08:57)
[2022-10-05] MEDS ORDERED: Glycopyrrolate 0.2 MG/ML 5 ML SYRINGE ONE (09:08)
[2022-10-05] MEDS ORDERED: Rocuronium Bromide 10 MG/ML (10ML VIAL) ONE (09:08)
[2022-10-05] MEDS ORDERED: Lidocaine 1% PF 5 ML VIAL ONE (09:08)
[2022-10-05] MEDS ORDERED: Ondansetron PF 4 MG/2 ML Vial ONE (09:08)
[2022-10-05] MEDS ORDERED: PROPOFOL 200 MG/20 ML VIAL ONE (09:08)
[2022-10-05] MEDS ORDERED: Dexamethasone 20 MG/5 ML VIAL ONE (09:08)
[2022-10-05] MEDS ORDERED: PHENYLEPHRINE-NS 100 MCG/ML 10 ML SYRINGE ONE (09:08)
[2022-10-05] MEDS ORDERED: NEOSTIGMINE 3 MG/3 ML SYR 3 MG/3 ML SYRINGE ONE (09:08)
[2022-10-05] MEDS ORDERED: HYDROcodone/Acetaminophen 5/325 mg Tablet ONE (12:19)
== END 2022-10-05 13:10 | disposition home or self-care (01) ==
LOC: SDC 06:07
PROVIDERS: ATTEND Surgery
PROC: 0JB70ZZ Excision of Back Subcutaneous Tissue and Fascia, Open Approach (ICD-10-PCS; principal; 2022-10-05)
DX: M79.89 Other specified soft tissue disorders (principal); K21.9 Gastro-esophageal reflux disease without esophagitis; G47.33 Obstructive sleep apnea (adult) (pediatric); Z85.3 Personal history of malignant neoplasm of breast; Z79.899 Other long term (current) drug therapy
CPT/HCPCS: 88304; J1100; J2001; J2405; J2704; J3490; S0028

== ENCOUNTER 2022-11-04 10:10 | Observation (INO) | payer BC ==
[2022-11-04] MEDS ORDERED: Aspirin Chewable 81 MG TAB ONE (11:01)
[2022-11-04] MEDS ORDERED: Acetaminophen 500 MG TAB ONE (11:01)
[2022-11-04] MEDS ORDERED: Ipratropium/Albuterol 3 ML NEB ONE (11:28)
[2022-11-04 11:34] LABS: #Eosinphils 0.3 thou/uL (0.0-0.7); #Lymphocytes 2.5 thou/uL (1.20-3.40); #Monocytes 0.7 thou/uL (0.11-0.59); #Neutrophils 5.6 thou/uL (1.40-6.50); %Basophils 0.3 % (0.0-1.0); %Eosinophils 3.2 % (0.0-10.0); %Monocytes 7.4 % (0.0-10.0); %Neutrophils 61.1 % (42.0-75.0); Hemoglobin 12.7 g/dL (12.0-16.0); Mean Corpuscular HGB CONC 31.3 g/dL (32.0-36.0); Mean Corpuscular Hemoglobin 22.9 pg (27.0-31.0); Mean Corpuscular Volume 73.3 fl (78.0-98.0); Mean Platelet Volume 11.1 fL (7.4-10.4); Platelet Count 240 10x3/uL (130-400); RBC Distribution Width 15.1 % (11.5-14.5); Red Blood Cell (RBC) Count 5.55 mill/uL (4.20-5.40); White Blood Cell (WBC) Count 9.1 10x3/uL (4.8-10.8)
[2022-11-04 11:55] LABS: ALT (SGPT) 24 U/L (8-55); AST (SGOT) 33 U/L (5-34); Albumin 3.8 g/dL (3.4-4.8); Alkaline Phosphatase 103 U/L (40-110); Anion Gap 12 mmol/L (10-20); BUN (Urea Nitrogen) 7 mg/dL (9.8-20.1); Calc. Creatinine Clearance 0 mL/min (70-130); Calcium 9.5 mg/dL (7.8-10.44); Carbon Dioxide 30 mmol/L (23-31); Chloride 102 mmol/L (98-107); Estimated GFR 90; Globulin 3.8 g/dL (2.4-3.5); Glucose 122 mg/dL (80-115); Lipase 20 U/L (8-78); Magnesium 1.8 mg/dL (1.6-2.6); Protein, Total 7.6 g/dL (5.8-8.1); Sodium 140 mmol/L (136-145)
[2022-11-04] MEDS ORDERED: HumaLOG 300 UNITS/3 ML VIAL SC PRN ×2 (15:54)
[2022-11-04] MEDS ORDERED: Dextrose 5% in Water 1,000 ML IV PRN (15:54)
[2022-11-04] MEDS ORDERED: Acetaminophen 325 MG TAB PO PRN (15:54)
[2022-11-04] MEDS ORDERED: Senokot S 8.6-50 MG TAB PO PRN (15:54)
[2022-11-04] MEDS ORDERED: Bisacodyl 10 MG SUPP PR PRN (15:54)
[2022-11-04] MEDS ORDERED: Nitroglycerin 0.4 MG TAB (25 Tab Bottle) SL PRN (15:54)
[2022-11-04] MEDS ORDERED: Dextrose 50% Abboject 50 ML SYRINGE SLOW IVP PRN (15:54)
[2022-11-04] MEDS ORDERED: Bisacodyl 5 MG TAB PO PRN (15:54)
[2022-11-04 17:01] LABS: Hemoglobin A1c 6.8 % (4.0-6.0)
[2022-11-04 17:25] LABS: Troponin I Less than 0.010 ng/mL (< 0.028)
[2022-11-04 18:46] VITALS: BMI 49.0
[2022-11-04] MEDS: Rosuvastatin 10 MG TAB PO SCH (21:12)
[2022-11-04] MEDS: Famotidine 20 MG TAB PO SCH (21:12)
[2022-11-05 05:31] LABS: #Eosinphils 0.4 thou/uL (0.0-0.7); #Lymphocytes 2.3 thou/uL (1.20-3.40); #Monocytes 0.8 thou/uL (0.11-0.59); %Basophils 0.2 % (0.0-1.0); %Eosinophils 4.4 % (0.0-10.0); %Lymphocytes 27.1 % (21.0-51.0); %Monocytes 9.2 % (0.0-10.0); %Neutrophils 59.1 % (42.0-75.0); Hemoglobin 11.9 g/dL (12.0-16.0); Mean Corpuscular HGB CONC 31.2 g/dL (32.0-36.0); Mean Corpuscular Volume 73.8 fl (78.0-98.0); Mean Platelet Volume 10.5 fL (7.4-10.4); Platelet Count 248 10x3/uL (130-400); RBC Distribution Width 14.9 % (11.5-14.5); Red Blood Cell (RBC) Count 5.16 mill/uL (4.20-5.40); White Blood Cell (WBC) Count 8.5 10x3/uL (4.8-10.8)
[2022-11-05 06:02] LABS: Anion Gap 12 mmol/L (10-20); BUN (Urea Nitrogen) 7 mg/dL (9.8-20.1); Calc. Creatinine Clearance 167 mL/min (70-130); Calcium 9.2 mg/dL (7.8-10.44); Carbon Dioxide 24 mmol/L (23-31); Chloride 105 mmol/L (98-107); Estimated GFR 98; Glucose 126 mg/dL (80-115); Potassium 3.5 mmol/L (3.5-5.1); Sodium 137 mmol/L (136-145)
[2022-11-05] MEDS: Escitalopram Oxalate 10 mg Tablet PO SCH (10:40)
[2022-11-05] MEDS: Cholecalciferol 1,000 UNITS (25 MCG) TAB PO SCH (10:40)
[2022-11-05] MEDS: Famotidine 20 MG TAB PO SCH ×2 (10:40→19:36)
[2022-11-05] MEDS: buPROPion HCl 100 MG TAB PO SCH (10:40)
[2022-11-05] MEDS: Loratadine 10 MG TAB PO SCH (10:41)
[2022-11-05 13:40] LABS: Bacteria/HPF None Seen HPF (None Seen); Bilirubin Negative (Negative); Blood, Urine Negative (Negative); Clarity Turbid (Clear); Glucose, Urine (Dipstick) Normal (Negative); Ketone, Urine Negative (Negative); Leukocyte 500 Leu/uL (Negative); Nitrite Negative (Negative); Protein, Urine (Dipstick) 20 mg/dL (Neg-Trace); RBC/HPF 0-3 HPF (0-3); Specific Gravity, Urine 1.022 (1.002-1.036); Squamous Epithelial 21-50 HPF (0-3); pH, Urine 6.5 (5.0-9.0)
[2022-11-05] MEDS: Rosuvastatin 10 MG TAB PO SCH (19:36)
[2022-11-06 05:27] LABS: #Basophils 0.1 thou/uL (0.0-0.2); #Eosinphils 0.5 thou/uL (0.0-0.7); #Lymphocytes 2.5 thou/uL (1.20-3.40); #Monocytes 0.8 thou/uL (0.11-0.59); #Neutrophils 4.9 thou/uL (1.40-6.50); %Basophils 0.7 % (0.0-1.0); %Eosinophils 5.4 % (0.0-10.0); %Lymphocytes 28.5 % (21.0-51.0); %Monocytes 9.3 % (0.0-10.0); %Neutrophils 56.2 % (42.0-75.0); Hemoglobin 11.3 g/dL (12.0-16.0); Mean Corpuscular HGB CONC 30.9 g/dL (32.0-36.0); Mean Corpuscular Hemoglobin 22.7 pg (27.0-31.0); Mean Corpuscular Volume 73.6 fl (78.0-98.0); Mean Platelet Volume 10.5 fL (7.4-10.4); Platelet Count 254 10x3/uL (130-400); RBC Distribution Width 14.9 % (11.5-14.5); Red Blood Cell (RBC) Count 4.98 mill/uL (4.20-5.40); White Blood Cell (WBC) Count 8.7 10x3/uL (4.8-10.8)
[2022-11-06 05:50] LABS: Anion Gap 11 mmol/L (10-20); BUN (Urea Nitrogen) 8 mg/dL (9.8-20.1); Calc. Creatinine Clearance 175 mL/min (70-130); Calcium 9.4 mg/dL (7.8-10.44); Carbon Dioxide 26 mmol/L (23-31); Chloride 106 mmol/L (98-107); Estimated GFR 99; Glucose 115 mg/dL (80-115); Potassium 3.4 mmol/L (3.5-5.1); Sodium 140 mmol/L (136-145)
[2022-11-06] MEDS: buPROPion HCl 100 MG TAB PO SCH (10:20)
[2022-11-06] MEDS: Cholecalciferol 1,000 UNITS (25 MCG) TAB PO SCH (10:21)
[2022-11-06] MEDS: Escitalopram Oxalate 10 mg Tablet PO SCH (10:21)
[2022-11-06] MEDS: Famotidine 20 MG TAB PO SCH (10:21)
[2022-11-06] MEDS: Loratadine 10 MG TAB PO SCH (10:21)
[2022-11-06 12:05] VITALS: BP 125/76; TEMP 98.2
== END 2022-11-06 14:10 | disposition home or self-care (01) ==
LOC: ERS 10:10 → 2SW 15:38
PROVIDERS: ADMIT Hospitalist; ATTEND Hospitalist
DX: M94.0 Chondrocostal junction syndrome [Tietze] (principal); I27.20 Pulmonary hypertension, unspecified; R10.2 Pelvic and perineal pain; M54.50 Low back pain, unspecified; K21.9 Gastro-esophageal reflux disease without esophagitis; Q85.00 Neurofibromatosis, unspecified; I10 Essential (primary) hypertension; E89.2 Postprocedural hypoparathyroidism; E27.9 Disorder of adrenal gland, unspecified; K44.9 Diaphragmatic hernia without obstruction or gangrene; E66.01 Morbid (severe) obesity due to excess calories; Z68.42 Body mass index [BMI] 45.0-49.9, adult; Z79.85 Long-term (current) use of injectable non-insulin antidiabetic drugs; Z79.899 Other long term (current) drug therapy; Z20.822 Contact with and (suspected) exposure to COVID-19
CPT/HCPCS: 36415; 36416; 71045; 74176; 76856; 78452; 80048; 80053; 81001; 82533; 83036; 83690; 83735; 83880; 84484; 85025; 85379; 93005; 93017; 93306; 93970; 96372; A9500; G0378; J0153; J1650; J7620; U0003; U0005

== ENCOUNTER 2022-12-25 10:51 | Outpatient (CLI) | payer BC ==
[2022-12-25 12:29] LABS: #Basophils 0.1 10x3/uL (0.0-0.2); #Eosinphils 0.4 10x3/uL (0.0-0.5); #Monocytes 0.8 10x3/uL (0.0-1.1); #Neutrophils 4.3 10x3/uL (1.5-8.4); %Basophils 1.1 % (0.0-2.0); %Eosinophils 4.1 % (0.0-6.0); %Lymphocytes 36.2 % (18.0-47.0); %Monocytes 8.6 % (0.0-10.0); %Neutrophils 49.8 % (40.0-75.0); Hemoglobin 10.9 g/dL (12.0-15.5); Mean Corpuscular HGB CONC 30.2 g/dL (32.0-36.0); Mean Corpuscular Volume 72.9 fl (81.6-98.3); Mean Platelet Volume 10.6 fl (7.4-10.4); Platelet Count 349 10x3/uL (150-450); Red Blood Cell (RBC) Count 4.95 10x6/uL (3.90-5.03); White Blood Cell (WBC) Count 8.7 10x3/uL (3.5-10.5)
[2022-12-25 12:55] LABS: Anion Gap 14 mmol/L (10-20); BUN (Urea Nitrogen) 9 mg/dL (9.8-20.1); Calc. Creatinine Clearance 0 mL/min (70-130); Calcium 9.5 mg/dL (7.8-10.44); Carbon Dioxide 25 mmol/L (23-31); Chloride 107 mmol/L (98-107); Estimated GFR 91; Glucose 76 mg/dL (80-115); Potassium 4.4 mmol/L (3.5-5.1); Sodium 142 mmol/L (136-145)
== END 2022-12-25 10:52 | disposition home or self-care (01) ==
LOC: LABBT 10:51
PROVIDERS: ATTEND Surgery
DX: Z01.812 Encounter for preprocedural laboratory examination (principal); K44.9 Diaphragmatic hernia without obstruction or gangrene
CPT/HCPCS: 80048; 85025

== ENCOUNTER 2022-12-28 05:41 | Day surgery (SDC) | payer BC ==
[2022-12-26 09:15] VITALS: BMI 50.5
[2022-12-28] MEDS ORDERED: Dexmedetomidine 200 MCG/2 ML VIAL ONE (06:07)
[2022-12-28] MEDS ORDERED: fentaNYL PF 100 MCG/2 ML SYRINGE ONE (06:07)
[2022-12-28] MEDS ORDERED: PHENYLEPHRINE-NS 100 MCG/ML 10 ML SYRINGE ONE (06:25)
[2022-12-28] MEDS ORDERED: HYDROmorphone 2 MG/ML VIAL ONE (06:25)
[2022-12-28] MEDS ORDERED: Bupivacaine/Epinephrine 0.25% 30 ML VIAL ONE (06:37)
[2022-12-28] MEDS ORDERED: SUGAMMADEX SODIUM 200 MG/2 ML VIAL ONE (06:59)
[2022-12-28] MEDS ORDERED: Sodium Chloride 0.9% 100 ML ONE (07:31)
[2022-12-28] MEDS ORDERED: CEFAZOLIN 2 GM VIAL ONE (07:31)
[2022-12-28] MEDS ORDERED: Lidocaine 1% PF 5 ML VIAL ONE (08:41)
[2022-12-28] MEDS ORDERED: Rocuronium Bromide 10 MG/ML (10ML VIAL) ONE (08:41)
[2022-12-28] MEDS ORDERED: Dexamethasone 20 MG/5 ML VIAL ONE (08:41)
[2022-12-28] MEDS ORDERED: Metoclopramide HCl 10 MG/2 ML VIAL ONE (08:41)
[2022-12-28] MEDS ORDERED: Ondansetron PF 4 MG/2 ML Vial ONE (08:41)
[2022-12-28] MEDS ORDERED: PROPOFOL 200 MG/20 ML VIAL ONE (08:41)
[2022-12-28] MEDS ORDERED: fentaNYL 50 mcg/mL 1 mL Vial ONE (10:49)
== END 2022-12-28 14:20 | disposition home or self-care (01) ==
LOC: SDC 05:41
PROVIDERS: ATTEND Surgery
DX: K44.9 Diaphragmatic hernia without obstruction or gangrene (principal); K21.9 Gastro-esophageal reflux disease without esophagitis; G47.33 Obstructive sleep apnea (adult) (pediatric); E89.2 Postprocedural hypoparathyroidism; Z85.3 Personal history of malignant neoplasm of breast; Z79.2 Long term (current) use of antibiotics; Z79.85 Long-term (current) use of injectable non-insulin antidiabetic drugs; Z79.899 Other long term (current) drug therapy
CPT/HCPCS: C1781; J1100; J1170; J2405; J2704; J2765; J3010; J3490

== ENCOUNTER 2023-04-24 09:01 | Outpatient (CLI) | payer BC | END 2023-04-24 09:02 | disposition home or self-care (01) | LOC: BICMAMMO 09:01 | PROVIDERS: ATTEND Nurse Practitioner Family | DX: Z12.31 Encounter for screening mammogram for malignant neoplasm of breast (principal); Z80.3 Family history of malignant neoplasm of breast; Z90.11 Acquired absence of right breast and nipple; Z91.89 Other specified personal risk factors, not elsewhere classified | CPT/HCPCS: 77063; 77067 ==

== ENCOUNTER 2023-05-22 14:56 | Emergency (ER) | payer BC ==
[2023-05-22] MEDS ORDERED: cloNIDine 0.1 MG TAB ONE (18:23)
[2023-05-22 18:35] LABS: #Basophils 0.1 thou/uL (0.0-0.2); #Eosinphils 0.2 thou/uL (0.0-0.7); #Monocytes 0.7 thou/uL (0.11-0.59); #Neutrophils 4.4 thou/uL (1.40-6.50); %Basophils 0.7 % (0.0-1.0); %Eosinophils 3.3 % (0.0-10.0); %Lymphocytes 27.8 % (21.0-51.0); %Monocytes 8.9 % (0.0-10.0); %Neutrophils 59.2 % (42.0-75.0); Hematocrit 36.2 % (36.0-47.0); Hemoglobin 11.2 g/dL (12.0-16.0); Mean Corpuscular HGB CONC 30.9 g/dL (32.0-36.0); Mean Corpuscular Hemoglobin 22.4 pg (27.0-31.0); Mean Corpuscular Volume 72.5 fl (78.0-98.0); Platelet Count 307 10x3/uL (130-400); RBC Distribution Width 16.2 % (11.5-14.5); Red Blood Cell (RBC) Count 4.99 mill/uL (4.20-5.40); White Blood Cell (WBC) Count 7.3 10x3/uL (4.8-10.8)
[2023-05-22 19:05] LABS: ALT (SGPT) 36 U/L (8-55); AST (SGOT) 40 U/L (5-34); Albumin 3.8 g/dL (3.4-4.8); Alkaline Phosphatase 93 U/L (40-110); Anion Gap 12 mmol/L (10-20); BUN (Urea Nitrogen) 6 mg/dL (9.8-20.1); Bilirubin, Total 0.5 mg/dL (0.2-1.2); Calc. Creatinine Clearance 0 mL/min (70-130); Calcium 10.1 mg/dL (7.8-10.44); Carbon Dioxide 26 mmol/L (23-31); Chloride 107 mmol/L (98-107); Estimated GFR 100; Globulin 3.4 g/dL (2.4-3.5); Glucose 86 mg/dL (80-115); Protein, Total 7.2 g/dL (5.8-8.1); Sodium 142 mmol/L (136-145)
[2023-05-22 19:08] LABS: Troponin I Less than 0.010 ng/mL (< 0.028)
[2023-05-22 19:09] LABS: Anisocytosis SLIGHT = 6-15 cells HPF (0-5); Burr Cells SLIGHT = 2-5 cells HPF (0-1); CellaVision Operator ID lab.sh2; Macrocytosis SLIGHT = 6-15 cells HPF (0-5); Ovalocytes SLIGHT = 2-5 cells HPF (0-1); Platelet Adequacy Comment Platelets Normal; Poikilocytosis SLIGHT = 6-15 cells HPF (0-5); Polychromasia SLIGHT = 2-3 cells HPF (0-2)
[2023-05-22] MEDS ORDERED: Potassium Chloride 20 MEQ TAB ONE (19:22)
== END 2023-05-22 19:40 | disposition home or self-care (01) ==
LOC: ERS 14:56
DX: I16.0 Hypertensive urgency (principal); E03.9 Hypothyroidism, unspecified; I10 Essential (primary) hypertension; E78.00 Pure hypercholesterolemia, unspecified; E11.9 Type 2 diabetes mellitus without complications; Z79.899 Other long term (current) drug therapy
CPT/HCPCS: 71045; 80053; 83880; 84484; 85025; 93005

== ENCOUNTER 2023-10-12 07:40 | Outpatient (CLI) | payer BC | END 2023-10-12 07:41 | disposition home or self-care (01) | LOC: BICRAD 07:40 | PROVIDERS: ATTEND Nurse Practitioner Family | DX: J06.9 Acute upper respiratory infection, unspecified (principal) | CPT/HCPCS: 71046 ==

== ENCOUNTER 2023-10-19 07:13 | Outpatient (CLI) | payer BC ==
[2023-10-19] MEDS ORDERED: Iopamidol 370 76% 100 ML VIAL ONE (11:39)
[2023-10-19] MEDS ORDERED: Magnevist 469MG/ML 20 ML VIAL ONE (12:11)
== END 2023-10-19 07:14 | disposition home or self-care (01) ==
LOC: CT 07:13
PROVIDERS: ATTEND Nurse Practitioner Family
DX: R63.4 Abnormal weight loss (principal); K57.30 Diverticulosis of large intestine without perforation or abscess without bleeding; K44.9 Diaphragmatic hernia without obstruction or gangrene; N20.0 Calculus of kidney; N28.1 Cyst of kidney, acquired; N28.89 Other specified disorders of kidney and ureter; E27.9 Disorder of adrenal gland, unspecified; K86.89 Other specified diseases of pancreas; E23.6 Other disorders of pituitary gland; Z90.710 Acquired absence of both cervix and uterus; Z90.49 Acquired absence of other specified parts of digestive tract; Z98.890 Other specified postprocedural states
CPT/HCPCS: 70553; 74178

== ENCOUNTER 2024-10-19 14:23 | Emergency (ER) | payer BC ==
[~2024-10-19 14:23] MED LIST changes: -Iopamidol-370 76% 500 ML 1 ML ONE; +Iopamidol-370 76% 500 ML MDV (1 ML CHARGE) ONE
[2024-10-19] MEDS ORDERED: Aspirin Chewable 81 MG TAB ONE (16:34)
[2024-10-19] MEDS ORDERED: Nitroglycerin 0.4 MG TAB 1 EACH ONE (16:36)
[2024-10-19 16:56] LABS: Hematocrit 37.7 % (36.0-47.0); Hemoglobin 11.7 g/dL (12.0-16.0); Mean Corpuscular Hemoglobin 22.4 pg (27.0-31.0); Mean Corpuscular Volume 72.1 fL (78.0-98.0); Mean Platelet Volume 10.1 fL (7.4-10.4); Platelet Count 366 10x3/uL (130-400); RBC Distribution Width 16.3 % (11.5-14.5); Red Blood Cell (RBC) Count 5.23 mill/uL (4.20-5.40)
[2024-10-19 17:04] LABS: INR-International Normal Ratio 1.1; PTT 26.6 sec (22.9-36.1); Prothrombin Time 13.9 sec (12.0-14.7)
[2024-10-19 17:05] LABS: D-Dimer Test 0.87 mcg/mL (0.27-0.43)
[2024-10-19 17:10] LABS: ALT (SGPT) 9 U/L (Less than 34); AST (SGOT) 15 U/L (11-34); Albumin 3.4 g/dL (3.1-4.5); Alkaline Phosphatase 108 U/L (40-110); Anion Gap 14 mmol/L (10-20); BUN (Urea Nitrogen) 7 mg/dL (9.8-20.1); Bilirubin, Total 0.7 mg/dL (0.3-1.2); Calc. Creatinine Clearance 0 mL/min (70-130); Calcium 9.5 mg/dL (7.8-10.44); Carbon Dioxide 24 mmol/L (23-31); Chloride 108 mmol/L (98-107); Estimated GFR 101; Globulin 3.7 g/dL (2.4-3.5); Glucose 84 mg/dL (80-115); Lipase 24 U/L (8-78); Magnesium 1.8 mg/dL (1.6-2.6); Potassium 3.5 mmol/L (3.5-5.1); Protein, Total 7.1 g/dL (5.8-8.1); Sodium 142 mmol/L (136-145)
[2024-10-19 17:14] LABS: Troponin I Less than 0.010 ng/mL (< 0.028)
[2024-10-19 17:17] LABS: Anisocytosis SLIGHT = 6-15 cells HPF (0-5); Band 1 % (5-11); Burr Cells SLIGHT = 2-5 cells HPF (0-1); Eosinophils 3 % (0-10); Lymphocytes 31 % (21-51); Microcytosis SLIGHT = 6-15 cells HPF (0-5); Monocytes 3 % (0-10); Neutrophil 59 % (42-75); Plasma Cells 1 % (0-0); Platelet Adequacy Comment Platelets Normal; Polychromasia SLIGHT = 2-3 cells HPF (0-2); Reactive Lymphocytes 1 % (0-10); Schistocytes SLIGHT = 2-5 cells HPF (0-1); Target Cells SLIGHT = 2-5 cells HPF (0-1)
== END 2024-10-19 19:42 | disposition home or self-care (01) ==
LOC: ERS 14:23
DX: R07.89 Other chest pain (principal); E11.9 Type 2 diabetes mellitus without complications; I10 Essential (primary) hypertension; E78.00 Pure hypercholesterolemia, unspecified; Z79.899 Other long term (current) drug therapy; Z85.3 Personal history of malignant neoplasm of breast
CPT/HCPCS: 36415; 71045; 71275; 80053; 83690; 83735; 83880; 84484; 85025; 85379; 85610; 85730; 93005; Q9967

== ENCOUNTER 2025-05-18 07:48 | Outpatient (CLI) | payer BC | END 2025-05-18 07:49 | disposition home or self-care (01) | LOC: BICMAMMO 07:48 | PROVIDERS: ATTEND Nurse Practitioner Family | DX: Z12.31 Encounter for screening mammogram for malignant neoplasm of breast (principal); N64.89 Other specified disorders of breast; Z80.3 Family history of malignant neoplasm of breast; Z86.000 Personal history of in-situ neoplasm of breast; Z98.890 Other specified postprocedural states | CPT/HCPCS: 77063; 77067 ==

== ENCOUNTER 2025-07-24 08:17 | Day surgery (SDC) | payer MEDICARE, BC ==
[2025-07-23 09:53] VITALS: BMI 32.8
[2025-07-24] MEDS ORDERED: Tranexamic Acid 1,000 MG/10 ML VIAL ONE (10:07)
[2025-07-24] MEDS ORDERED: CEFAZOLIN 2 GM VIAL ONE (10:08)
[2025-07-24] MEDS ORDERED: Heparin 5,000 UNITS/ML VIAL ONE (10:08)
[2025-07-24] MEDS ORDERED: Bupivacaine 0.25% HCL 30 ML VIAL ONE (10:27)
[2025-07-24] MEDS ORDERED: Lidocaine 1% (PF) 30 ML VIAL ONE (10:27)
[2025-07-24] MEDS ORDERED: Lidocaine 1% PF 5 ML VIAL ONE (10:28)
[2025-07-24] MEDS ORDERED: Rocuronium Bromide 10 MG/ML (10ML VIAL) ONE (10:28)
[2025-07-24] MEDS ORDERED: fentaNYL PF 100 MCG/2 ML SYRINGE ONE ×2 (10:51→11:31)
[2025-07-24] MEDS ORDERED: Ondansetron PF 4 MG/2 ML Vial ONE (10:52)
[2025-07-24] MEDS ORDERED: PROPOFOL 200 MG/20 ML VIAL ONE (11:03)
[2025-07-24] MEDS ORDERED: Ketorolac Tromethamine 30 MG (1 mL) VIAL ONE (11:03)
[2025-07-24] MEDS ORDERED: NEOSTIGMINE 3 MG/3 ML SYRINGE ONE (12:16)
[2025-07-24] MEDS ORDERED: Glycopyrrolate 0.2 MG/ML 5 ML SYRINGE ONE (12:16)
[2025-07-24] MEDS ORDERED: HYDROmorphone 0.5 MG/0.5 ML SYRINGE ONE (13:47)
[2025-07-24] MEDS ORDERED: HYDROcodone/Acetaminophen 5/325 mg Tablet ONE (16:12)
== END 2025-07-24 16:58 | disposition home or self-care (01) ==
LOC: SDC 08:17
PROVIDERS: ATTEND Plastic Surgery
PROC: 0HBU0ZZ Excision of Left Breast, Open Approach (ICD-10-PCS; principal; 2025-07-24)
DX: N64.89 Other specified disorders of breast (principal); N62 Hypertrophy of breast; E11.9 Type 2 diabetes mellitus without complications; I10 Essential (primary) hypertension; Z85.3 Personal history of malignant neoplasm of breast; Z90.49 Acquired absence of other specified parts of digestive tract; Z90.710 Acquired absence of both cervix and uterus
CPT/HCPCS: 19318; J0169; J0665; J1100; J1171; J1644; J1885; J2405; J2704; Q0162; 88305; J1580; J2003; J3373

== ENCOUNTER 2025-08-13 08:17 | Outpatient (CLI) | payer MEDICARE, BC | END 2025-08-13 08:18 | disposition home or self-care (01) | LOC: CT 08:17 | PROVIDERS: ATTEND Internal Medicine Hematology & Oncology | DX: C7A.8 Other malignant neuroendocrine tumors (principal); E27.8 Other specified disorders of adrenal gland; N20.0 Calculus of kidney; K44.9 Diaphragmatic hernia without obstruction or gangrene; J98.4 Other disorders of lung; R91.1 Solitary pulmonary nodule; J98.59 Other diseases of mediastinum, not elsewhere classified; J98.6 Disorders of diaphragm; E04.2 Nontoxic multinodular goiter; N28.89 Other specified disorders of kidney and ureter; Z85.3 Personal history of malignant neoplasm of breast; Z90.411 Acquired partial absence of pancreas; Z90.49 Acquired absence of other specified parts of digestive tract; Z90.81 Acquired absence of spleen | CPT/HCPCS: 71260; 74177 ==

== ENCOUNTER 2025-08-20 09:44 | Outpatient (CLI) | payer MEDICARE, BC | END 2025-08-20 09:45 | disposition home or self-care (01) | LOC: RAD 09:44 | PROVIDERS: ATTEND Family Medicine | DX: Z04.3 Encounter for examination and observation following other accident (principal); Z91.81 History of falling | CPT/HCPCS: 71046 ==

== ENCOUNTER 2025-09-04 04:30 | Emergency (ER) | payer MEDICARE, BC ==
[2025-09-04] MEDS ORDERED: cefTRIAXone (ROCEPHIN) 1 GM VIAL ONE (06:25)
[2025-09-04] MEDS ORDERED: Ondansetron PF 4 MG/2 ML Vial ONE ×2 (06:25→08:27)
[2025-09-04 06:52] LABS: Hematocrit 39.6 % (36.0-47.0); Hemoglobin 12.0 g/dL (12.0-16.0); Mean Corpuscular Hemoglobin 22.0 pg (27.0-31.0); Mean Corpuscular Volume 72.5 fL (78.0-98.0); Platelet Count 327 10x3/uL (130-400); Red Blood Cell (RBC) Count 5.46 mill/uL (4.20-5.40); White Blood Cell (WBC) Count 7.83 10x3/uL (4.8-10.8)
[2025-09-04 07:14] LABS: Anisocytosis SLIGHT = 6-15 cells HPF (0-5); Nucleated RBC (Manual Ct) 1 % (0); Platelet Adequacy Comment Platelets Normal; Target Cells SLIGHT = 2-5 cells HPF (0-1)
[2025-09-04 07:15] LABS: ALT (SGPT) 9 U/L (Less than 34); AST (SGOT) 19 U/L (11-34); Albumin 3.7 g/dL (3.1-4.5); Alkaline Phosphatase 149 U/L (40-110); Anion Gap 16 mmol/L (10-20); BUN (Urea Nitrogen) 6 mg/dL (9.8-20.1); Bilirubin, Total 1.2 mg/dL (0.3-1.2); Calc. Creatinine Clearance 0 mL/min (70-130); Calcium 9.4 mg/dL (7.8-10.44); Carbon Dioxide 24 mmol/L (23-31); Chloride 107 mmol/L (98-107); Globulin 3.2 g/dL (2.4-3.5); Glucose 155 mg/dL (80-115); Lipase 42 U/L (8-78); Potassium 3.7 mmol/L (3.5-5.1); Sodium 143 mmol/L (136-145)
[2025-09-04 07:52] LABS: Glucose, Urine (Dipstick) Negative (Negative); Leukocyte Negative (Negative); Protein, Urine (Dipstick) Negative (Neg-Trace); Specific Gravity, Urine 1.010 (1.005-1.030)
[2025-09-04 08:03] LABS: Bacteria/HPF None Seen HPF (None Seen); RBC/HPF None Seen HPF (0-3); WBC/HPF None Seen HPF (0-3)
[2025-09-04] MEDS ORDERED: Ketorolac Tromethamine 30 MG (1 mL) VIAL ONE (08:27)
== END 2025-09-04 09:04 | disposition home or self-care (01) ==
LOC: ERS 04:30
DX: N39.0 Urinary tract infection, site not specified (principal); E03.9 Hypothyroidism, unspecified; I10 Essential (primary) hypertension; E11.9 Type 2 diabetes mellitus without complications
CPT/HCPCS: 74176; 80053; 81001; 83690; 84484; 85025; 87040; 87086; J0696; J1885; J2405; 96374; 96375; 96376